=== PATIENT | female | born 1960 | race Caucasian/White ===

== ENCOUNTER 2016-08-03 10:15 | Inpatient (IN) | payer MEDICARE, OTHER ==
[2016-08-03] MEDS: SODIUM CHLORIDE 0.9% 1,000 ML IV SCH (18:24)
[2016-08-03] MEDS ORDERED: BACLOFEN 10 MG TAB PO PRN (18:27)
[2016-08-03] MEDS ORDERED: POLYETHYLENE GLYCOL 3350 17 GM POWD.PACK PO PRN (18:27)
[2016-08-03] MEDS: methylPREDNISolone SOD SUCCI 125 MG/2 ML VIAL IV SCH ×2 (18:41→23:41)
[2016-08-03] MEDS: LEVOFLOXACIN 750MG-D5W PMX 750 MG in DEXTROSE/WATER 1 150ML.BAG IVPB SCH (18:41)
--- NOTE | 2016-08-03 19:12 | XR ---
EXAMINATION TYPE: XR chest 2V DATE OF EXAM: 08/03/2016 6:58 PM COMPARISON: 09/09/2012 HISTORY: Cough and congestion TECHNIQUE: Frontal and lateral views of the chest are obtained. FINDINGS: Heart and mediastinum are normal. Lungs are clear of consolidation. There are no hilar mas ses. There is no evidence of pleural effusion. Bony thorax is intact. IMPRESSION: No active cardiopulmonary disease. No change.
[2016-08-03] MEDS: IBUPROFEN 800 MG TAB PO PRN (19:42)
[2016-08-03 20:32] LABS: Glucose,Whole Blood 111 mg/dL (75-99)
[2016-08-03] MEDS: IPRATROPIUM-ALBUTEROL 3 ML NEB INHALATION SCH (21:08)
[2016-08-03] MEDS: PREGABALIN 100 MG CAP PO SCH (21:56)
[2016-08-03] MEDS: ATORVASTATIN 20 MG TAB PO SCH (21:56)
[2016-08-03] MEDS: MIRTAZAPINE 15 MG TAB PO SCH (21:56)
[2016-08-03] MEDS: ALPRAZolam 0.5 MG TAB PO SCH (21:58)
[2016-08-03] MEDS: INSULIN LISPRO (humaLOG) 300 UNIT/3 ML VIAL SQ SCH (21:58)
[2016-08-03] MEDS: HYDROcodone/APAP 10-325MG 1 EACH TAB PO PRN (22:49)
[2016-08-04] MEDS: HYDROcodone/APAP 10-325MG 1 EACH TAB PO PRN ×3 (04:32→17:01)
[2016-08-04 07:58] LABS: Glucose,Whole Blood 155 mg/dL (75-99)
[2016-08-04] MEDS: FLUoxetine HCL 20 MG CAP PO SCH (08:22)
[2016-08-04] MEDS: SODIUM CHLORIDE 0.9% 1,000 ML IV SCH ×2 (08:22→22:47)
[2016-08-04] MEDS: LIDOCAINE 5% PATCH TOPICAL SCH (08:23)
[2016-08-04] MEDS: PREGABALIN 100 MG CAP PO SCH ×2 (08:23→22:49)
[2016-08-04] MEDS: buPROPion XL 300 MG TAB.ER.24H PO SCH (08:23)
[2016-08-04] MEDS: methylPREDNISolone SOD SUCCI 125 MG/2 ML VIAL IV SCH ×3 (08:24→23:18)
[2016-08-04] MEDS: INSULIN LISPRO (humaLOG) 300 UNIT/3 ML VIAL SQ SCH ×4 (08:25→22:49)
[2016-08-04] MEDS: ALPRAZolam 0.5 MG TAB PO SCH ×3 (08:34→22:49)
[2016-08-04] MEDS: IBUPROFEN 800 MG TAB PO PRN ×2 (08:34→23:18)
[2016-08-04] MEDS: IPRATROPIUM-ALBUTEROL 3 ML NEB INHALATION SCH ×4 (08:52→21:06)
[2016-08-04 11:27] LABS: Glucose,Whole Blood 215 mg/dL (75-99)
[2016-08-04] MEDS ORDERED: IPRATROPIUM-ALBUTEROL 3 ML NEB INHALATION PRN (11:59)
--- NOTE | 2016-08-04 12:00 | P.CNPUL ---
History of Present Illness Consult date: 08/04/16 Reason for consult: dyspnea, cough Chief complaint: Cough and shortness of breath History of present illness: Patient seen and examined covering for Dr. Selby. This is a 56-year-old female who was apparently a direct admit from Dr. Ly 's office. The patient states she has been sick since June and never went to the doctor to get treated. She states it has been worsening over the past several weeks. She has a wet cough which she is just now able to produce yellow green sputum. She states she had to be propped up to sleep at night. She did have fevers and chills at home. She is also complaining of muscle pain from chronic coughing. She states she was hospitalized in 2010 with pneumonia and sepsis she did use inhalers at that time. She stopped her inhalers because she was feeling better. She also has a nebulizer at home which she states she wasn't using. She does smoke half a pack per day for over 20 years. She states since he has been sick she's cut down on her smoking. She states she has never been diagnosed with asthma or COPD. Past Medical History Past Medical History: Cancer, GERD/Reflux, Hyperlipidemia, Musculoskeletal Disorder, Osteoarthritis (OA) Additional Past Medical History / Comment(s): HIATAL HERNIA, hx. PHLEBITIS RIGHT LEG,appetite down since jun 2016, has RSD ( REFLEX SYMPATHETIC DYSTROPHY), 4 inches above rt knee down to toes & right hand to elbow, celic disease was previously charted but when asked if any bowel conditions stated no, herniated discs neck & back, arthritis in hands, had hx of gestational diabetes, pancareatitis, uterine ca, CONSTIPATION STATED SHE CAN GO 2 WEEKS OR MORE WITHOUT HAVING A BM. THINKS SHE MAY HAVE HAD ONE A WEEK AGO. History of Any Multi-Drug Resistant Organisms: None Reported Past Surgical History: Section, Cholecystectomy, Hysterectomy, Orthopedic Surgery, Tubal Ligation Additional Past Surgical History / Comment(s): RIGHT OVARY REMOVED, HAS HAD 3 C- SECTIONS, SCOPE RT KNEE, lt wrist ganglion cyst, partial hysterectomy then 2 months later 2nd sx took it all., lumbar epidural steroid injections Past Anesthesia/Blood Transfusion Reactions: No Reported Reaction Past Psychological History: Anxiety, Depression Additional Psychological History / Comment(s): pt stated i feel well maintained by medications i'm currently on. pt lives alone (1 pet cat)in apt-has no steps. uses a cane /walker.no outside services. no driving-daughters help out. has cane/walker/nebulizer. Smoking Status: Current every day smoker Past Alcohol Use History: None Reported Additional Past Alcohol Use History / Comment(s): smoking on & off since 1986 smokes 1/2 ppd Past Drug Use History: None Reported - Past Family History Father Family Medical History: Cancer, Congestive Heart Failure (CHF), Rheumatoid Arthritis (RA) Additional Family Medical History / Comment(s): gout Mother Family Medical History: Cancer Additional Family Medical History / Comment(s): lung cancer Brother(s) Family Medical History: Myocardial Infarction ([place]) Medications and Allergies Home Medications Medication Instructions Recorded Confirmed Type ALPRAZolam [Xanax] 1 mg PO TID 03/05/14 08/03/16 History Baclofen [Lioresal] 20 mg PO HS PRN 03/05/14 08/03/16 History HYDROcodone/APAP 10-325MG [[place] 1 tab PO Q6H PRN 03/05/14 08/03/16 History 10] Pregabalin [Lyrica] 300 mg PO BID 03/05/14 08/03/16 History Simvastatin [Zocor] 40 mg PO HS 03/05/14 08/03/16 History buPROPion XL [Wellbutrin XL] 300 mg PO DAILY 03/05/14 08/03/16 History fentaNYL 25MCG/HR PATCH [Duragesic 1 patch TRANSDERM Q72H 03/05/14 08/03/16 History 25Mcg/Hr Patch] Ibuprofen [Motrin] 800 mg PO Q6H PRN 03/08/14 08/03/16 History Mirtazapine [Remeron] 7.5 mg PO HS 06/11/14 08/03/16 History Polyethylene Glycol 3350 [Miralax] 17 gm PO DAILY PRN 09/10/14 08/03/16 History FLUoxetine HCL 60 mg PO DAILY 08/03/16 08/03/16 History Lidocaine [Lidoderm 5% Patch] 1 patch TRANSDERM DAILY 08/03/16 08/03/16 History Allergies Allergy/AdvReac Type Severity Reaction Status Date / Time doxycycline calcium Allergy Rash/Hives Verified 02/21/15 16:03 [From Vibramycin] doxycycline hyclate Allergy Rash/Hives Verified 02/21/15 16:03 [From Vibramycin] doxycycline monohydrate Allergy Rash/Hives Verified 02/21/15 16:03 [From Vibramycin] tetracycline [Tetracycline] Allergy Rash/Hives Verified 02/21/15 16:03 gluten AdvReac Unknown Verified 02/21/15 16:03 Physical Exam Osteopathic Statement: *. No significant issues noted on an osteopathic structural exam other than those noted in the History and Physical/Consult. Vitals: Vital Signs Temp Pulse Pulse Resp BP Pulse Ox 08/04/16 08:00 74 18 08/04/16 07:00 97.6 F 74 18 98/53 95 08/03/16 21:20 88 08/03/16 21:09 84 08/03/16 20:50 22 08/03/16 20:48 98.8 F 22 114/54 98 Intake and Output 08/03/16 08/04/16 08/04/16 22:59 06:59 14:59 Intake Total 325 850 Balance 325 850 Intake: Intake, IV Titration 225 600 Amount Sodium Chloride 0.9% 1, 225 600 000 ml @ 75 mls/hr IV . [id number] [facility] Rx#:[id number] Oral 100 250 Other: Voiding Method Toilet Toilet # Voids 1 1 Weight 52 kg Gen.: Patient is alert and oriented 3, no acute distress, thin Cardiovascular: Regular rate and rhythm, S1/S2 Lungs: Coarse breath sounds bilaterally with expiratory wheezing Abdomen: Soft nontender nondistended positive bowel sounds Extremities: No edema Results - Laboratory Findings Abnormal lab findings: Abnormal Labs 08/03/16 08/04/16 08/04/16 20:30 07:56 11:26 POC Glucose (mg/dL) 111 H 155 H 215 H - Diagnostic Findings Chest x-ray: report reviewed, image reviewed Assessment and Plan Plan: Acute exacerbation of COPD Tracheobronchitis Bronchospasm Active tobacco abuse Chronic pain Anxiety and depression Dyslipidemia GERD O2 to maintain saturation greater than equal to 88% Chest x-ray reviewed Antibiotics: Levaquin Solu-Medrol Singulair Bronchodilators and Pulmicort Smoking cessation is highly recommended GI and DVT prophylaxis Incentive spirometry and pulmonary hygiene IV fluid hydration
[2016-08-04 13:11] VITALS: BMI 19.6
[2016-08-04 15:30] LABS: Amorphous Sediment,Urine Rare /hpf; Appearance,Urine Clear (Clear); Bilirubin,Urine Negative (Negative); Glucose,Urine (UA) Negative (Negative); Ketones,Urine Negative (Negative); Leukocyte Esterase,Urine Small (Negative); Mucus,Urine Rare /hpf; Nitrite,Urine Negative (Negative); Particle Count 1487; Protein,Urine Trace (Negative); RBC,Urine 1 /hpf (0-5); Specific Gravity,Urine 1.024 (1.001-1.035); Squamous Epithelial Cell,Urine 2 /hpf (0-4); UA Billing (MACRO vs. MICRO) MICRO; Urobilinogen,Urine <2.0 mg/dL (<2.0); WBC,Urine 2 /hpf (0-5)
[2016-08-04] MEDS: LEVOFLOXACIN 750MG-D5W PMX 750 MG in DEXTROSE/WATER 1 150ML.BAG IVPB SCH (17:27)
[2016-08-04 17:30] LABS: Glucose,Whole Blood 247 mg/dL (75-99)
[2016-08-04] MEDS: BUDESONIDE 0.5 MG/2 ML NEBU INHALATION SCH (21:06)
[2016-08-04 22:05] LABS: Glucose,Whole Blood 229 mg/dL (75-99)
[2016-08-04] MEDS: MIRTAZAPINE 15 MG TAB PO SCH (22:48)
[2016-08-04] MEDS: ATORVASTATIN 20 MG TAB PO SCH (22:48)
[2016-08-04] MEDS: MONTELUKAST 10 MG TAB PO SCH (22:49)
[2016-08-05] MEDS: HYDROcodone/APAP 10-325MG 1 EACH TAB PO PRN ×3 (04:18→17:43)
[2016-08-05] MEDS: LIDOCAINE 5% PATCH TOPICAL SCH (07:33)
[2016-08-05] MEDS: ALPRAZolam 0.5 MG TAB PO SCH ×3 (07:33→23:01)
[2016-08-05] MEDS: PREGABALIN 100 MG CAP PO SCH ×2 (07:34→20:37)
[2016-08-05] MEDS: methylPREDNISolone SOD SUCCI 125 MG/2 ML VIAL IV SCH ×2 (07:34→17:36)
[2016-08-05] MEDS: FLUoxetine HCL 20 MG CAP PO SCH (07:35)
[2016-08-05 07:42] LABS: Glucose,Whole Blood 218 mg/dL (75-99)
[2016-08-05] MEDS: INSULIN LISPRO (humaLOG) 300 UNIT/3 ML VIAL SQ SCH ×4 (07:47→20:38)
[2016-08-05 08:21] LABS: ALT 29 U/L (9-52); AST 22 U/L (14-36); Alkaline Phosphatase 60 U/L (38-126); Anion Gap 9 mmol/L; Blood Urea Nitrogen 25 mg/dL (7-17); Calcium 8.8 mg/dL (8.4-10.2); Carbon Dioxide 23 mmol/L (22-30); Chloride 109 mmol/L (98-107); Glucose 222 mg/dL (74-99); Non-African American GFR(MDRD) >60 (>60 ml/min/1.73 sqM); Potassium 4.4 mmol/L (3.5-5.1); Sodium 141 mmol/L (137-145); Total Bilirubin 0.2 mg/dL (0.2-1.3); Total Protein 6.4 g/dL (6.3-8.2)
[2016-08-05 08:25] LABS: Basophils % (A) 0 %; CHCM 31.8; Eosinophils % (A) 0 %; HCT 36.6 % (34.0-46.0); HDW 2.55; HGB 12.1 gm/dL (11.4-16.0); Luc # (Auto) 0.08; Luc % (Auto) 1; Lymphocytes # (A) 0.5 k/uL (1.0-4.8); Lymphocytes % (A) 3 %; MCH 30.2 pg (25.0-35.0); MCV 91.5 fL (80.0-100.0); Mean Platelet Volume 6.5; Monocytes # (A) 0.3 k/uL (0-1.0); Monocytes % (A) 2 %; Neutrophils # (A) 13.1 k/uL (1.3-7.7); Neutrophils % (A) 94 %; RDW 13.9 % (11.5-15.5); WBC 13.9 k/uL (3.8-10.6); WBC (Perox) 14.79
[2016-08-05] MEDS: buPROPion XL 300 MG TAB.ER.24H PO SCH (09:13)
[2016-08-05] MEDS: IPRATROPIUM-ALBUTEROL 3 ML NEB INHALATION SCH ×4 (09:33→20:10)
[2016-08-05] MEDS: BUDESONIDE 0.5 MG/2 ML NEBU INHALATION SCH ×2 (09:33→20:10)
[2016-08-05] MEDS: SODIUM CHLORIDE 0.9% 1,000 ML IV SCH (11:07)
[2016-08-05 11:18] LABS: Glucose,Whole Blood 220 mg/dL (75-99)
[2016-08-05] MEDS: IBUPROFEN 800 MG TAB PO PRN (11:55)
--- NOTE | 2016-08-05 12:00 | HP ---
DATE OF ADMISSION: 08/03/2016 CHIEF COMPLAINT: This is a 56-year-old white female with increased respiratory distress, shortness of breath, failing outpatient treatment with aggressive albuterol and Atrovent and steroids. She has been coughing with green-yellow phlegm. Did have some fever and chills, muscle pain and some chronic coughing. History of pneumonia in the past. She smokes 1/2 pack per day for 20 years. PAST MEDICAL HISTORY: GERD, COPD, osteoarthritis, possible asthma, dyslipidemia, RSD, fibromyalgia, multiple herniated disks in the neck and lower back, osteoarthritis, gestational diabetes, pancreatitis, history constipation, possible celiac disease. Surgeries of , cholecystectomy, hysterectomy, orthopedic surgery, tubal ligation, right ovary ( ) resection, 3 C-sections, scope of the right knee, partial hysterectomy, lumbar epidural steroid injections. She lives alone. She uses a walker and a cane. She has a pet cat. She has no steps. Family helps out. Current every day smoker. No alcohol. No illicit drugs. FAMILY HISTORY: Father had cancer, congestive heart failure, rheumatoid arthritis. Mother had cancer, lung cancer. Brother with myocardial infarction. Medications at home Xanax, Lioresal, hydrocodone, Lyrica, Zocor, Wellbutrin, Cytomel, Motrin, Remeron, MiraLAX, fluoxetine, lidocaine patch. ALLERGIES: DOXYCYCLINE, TETRACYCLINE. Pulse 74, respirations 16 to 18, temp 97.6, blood pressure 90s to 100s over 50s. CARDIOVASCULAR: Regular rate and rhythm. S1, S2. No murmurs, rubs, gallops. ABDOMEN: Soft, nontender, normal bowel sounds. EXTREMITIES: No cyanosis, clubbing or edema. GENERAL: Alert, and oriented x3. LUNGS: Scattered wheeze x4. Decreased breath sounds x4, scattered rhonchi. No rales. GI: Soft, nontender. VASCULAR: Normal dorsalis pedis, posterior tibial and radial pulse. ASSESSMENT: 1. Acute exacerbation of chronic obstructive pulmonary disease. 2. Tracheobronchitis, bronchospasm. 3. Nicotine addiction. 4. Anxiety, depression. 5. Reflex sympathetic dystrophy. 6. Fibromyalgia. 7. Dyslipidemia. 8. Radiculopathy. 9. Gastroesophageal reflux disease. Continue with Levaquin, steroids, IV, updraft treatments. Await pulmonary consult. Home medicines will be continued. Singulair, DuoNeb and Pulmicort updrafts. See further orders. Fluid rehydration.
[2016-08-05 12:22] LABS: Hemoglobin A1C 5.6 % (4.2-6.1)
--- NOTE | 2016-08-05 12:46 | PN ---
Antoinette Arguello is a 56-year-old female, seen, evaluated, and examined on the fifth floor. Patient is extremely short of breath on minimal activity and exertion. She does have intermittent wheezing, denies any chest pain though but gets short of breath on minimal activity and exertion. Her hemodynamic status is marginal, but stable. Blood pressure is 110/50, respiratory rate is 16, pulse 83, temperature 97, sating 98% on 2 L. HEENT examination is otherwise unremarkable. NECK: Supple. LUNGS: Bilateral coarse breath sound, respiratory extreme wheezing and rhonchi are present. HEART: Regular rate and rhythm. Abdomen is soft. NEUROLOGICAL EXAMINATION: Otherwise, awake and alert. Labs reviewed. Medications reviewed as well. Her TSH is 0.060. The rest of the chemistry is normal except glucose is 218. CBC revealed white cell count of 13,900. Current medications reviewed and include DuoNeb unit dose updraft 4 times a day, Pulmicort 0.5 b.i.d., Wellbutrin, Duragesic patch, Prozac, Levaquin, Solu-Medrol, mirtazapine, Singulair and Maalox and Lyrica, IV fluid normal creatinine 75 mL and hour. The last chest x-ray performed 08/03/2016 has been reviewed, no active pulmonary process is seen. IMPRESSION: 1. Acute chronic obstructive pulmonary disease exacerbation. 2. Tracheobronchitis. 3. Severe and chronic pain syndrome. 4. Purulent tracheobronchitis. 5. Severely suppressed TSH. Would recommend to check FT4 level to rule hypothyroidism. Continue other supportive care. Continue steroids, antibiotics and breathing treatments. Continue sliding scale insulin, borderline hyperglycemia likely related to steroids. Will follow.
[2016-08-05] MEDS: PROM-PHEN-COD 6.25-5-10MG/5ML 5 ML CUP PO PRN (13:35)
--- NOTE | 2016-08-05 14:07 | PN ---
Antoinette is a 56-year-old white female with tracheobronchitis, acute respiratory failure, severe wheezing, failing outpatient treatment. She still has large amounts of wheezing in all 4 lung ma. CARDIOVASCULAR: S1, S2. LUNGS: Scattered wheeze and rhonchi x4. She has severe congestive cough. ENDOCRINE: She is thin, cachectic. ASSESSMENT: 1. Asthma exacerbation versus chronic obstructive pulmonary disease exacerbation. 2. Tracheobronchitis. 3. Acute respiratory failure secondary to above. Continue with Pulmicort, albuterol and Atrovent updrafts. Continue with IV Levaquin, IV Solu-Medrol and was started on nutrition supplements for moderate protein calorie malnutrition. Will give her some cough medicine today as she has severe cough.
[2016-08-05 17:17] LABS: Glucose,Whole Blood 216 mg/dL (75-99)
[2016-08-05] MEDS: LEVOFLOXACIN 750 MG TAB PO SCH (18:52)
[2016-08-05 20:31] LABS: Glucose,Whole Blood 186 mg/dL (75-99)
[2016-08-05] MEDS: MIRTAZAPINE 15 MG TAB PO SCH (20:36)
[2016-08-05] MEDS: ATORVASTATIN 20 MG TAB PO SCH (20:36)
[2016-08-05] MEDS: MONTELUKAST 10 MG TAB PO SCH (20:37)
[2016-08-06] MEDS: SODIUM CHLORIDE 0.9% 1,000 ML IV SCH ×4 (00:06→17:23)
[2016-08-06] MEDS: methylPREDNISolone SOD SUCCI 125 MG/2 ML VIAL IV SCH ×2 (00:06→08:28)
[2016-08-06] MEDS: IBUPROFEN 800 MG TAB PO PRN ×3 (04:45→17:22)
[2016-08-06] MEDS: PROM-PHEN-COD 6.25-5-10MG/5ML 5 ML CUP PO PRN ×3 (04:46→21:01)
[2016-08-06 07:20] LABS: Glucose,Whole Blood 191 mg/dL (75-99)
[2016-08-06] MEDS: BUDESONIDE 0.5 MG/2 ML NEBU INHALATION SCH ×2 (07:20→19:25)
[2016-08-06] MEDS: IPRATROPIUM-ALBUTEROL 3 ML NEB INHALATION SCH ×4 (07:21→19:25)
[2016-08-06] MEDS: ALPRAZolam 0.5 MG TAB PO SCH ×3 (08:27→22:08)
[2016-08-06] MEDS: FLUoxetine HCL 20 MG CAP PO SCH (08:28)
[2016-08-06] MEDS: buPROPion XL 300 MG TAB.ER.24H PO SCH (08:28)
[2016-08-06] MEDS: PREGABALIN 100 MG CAP PO SCH ×2 (08:28→21:01)
[2016-08-06] MEDS: INSULIN LISPRO (humaLOG) 300 UNIT/3 ML VIAL SQ SCH ×4 (08:29→21:01)
[2016-08-06] MEDS: LIDOCAINE 5% PATCH TOPICAL SCH (08:30)
[2016-08-06] MEDS: HYDROcodone/APAP 10-325MG 1 EACH TAB PO PRN ×2 (08:39→21:00)
--- NOTE | 2016-08-06 11:50 | P.PN ---
Subjective This patient is a 56-year-old female who is being evaluated and examined today on the fifth floor. The patient continues to be short of breath on minimal activity and exertion. She does continue to have intermittent wheezing denies any chest pain at this time upon examination the patient gets short of breath with extensive conversation. Patient is complaining of thick secretions and she is unable to cough up the secretions. Objective - Vital Signs Vital signs: Vital Signs Temp 98.0 F 08/06/16 07:00 Pulse 90 08/06/16 11:19 Resp 16 08/06/16 07:00 BP 131/73 08/06/16 07:00 Pulse Ox 99 08/06/16 07:00 Intake & Output 08/05/16 08/06/16 08/06/16 18:59 06:59 18:59 Intake Total 1250 975 240 Balance 1250 975 240 Weight 52 kg Intake: Intake, IV Titration 650 825 Amount Sodium Chloride 0.9% 1, 650 825 000 ml @ 75 mls/hr IV . [id number] [facility] Rx#:[id number] Oral 600 150 240 Other: Voiding Method Toilet Toilet Toilet # Voids 1 1 - Exam GENERAL EXAM: Alert, active, comfortable in no apparent distress. HEAD: Normocephalic. EYES: Normal reaction of pupils, equal size. NOSE: Clear with pink turbinates. THROAT: No erythema or exudates. NECK: No masses, no JVD. CHEST: No chest wall deformity. LUNGS: Lung sounds noted to be coarse bilaterally, also noted is inspiratory and expiratory wheezing with rhonchi. CVS: S1 and S2 normal with no audible mumurs, regular rhythm. ABDOMEN: No hepatosplenomegaly, normal bowel sounds, no guarding or rigidity. EXTREMITIES: No edema noted, pedal pulses palpable. SKIN: No rashes CENTRAL NERVOUS SYSTEM: No focal deficits, tone is normal in all 4 extremities. - Labs CBC & Chem 7: 08/05/16 07:15 08/05/16 07:15 Labs: Abnormal Lab Results - Last 24 Hours (Table) 08/05/16 08/05/16 08/06/16 Range/Units 17:14 20:22 07:05 POC Glucose (mg/dL) 216 H 186 H 191 H (75-99) mg/dL Assessment and Plan Plan: Assessment Acute exacerbation of chronic obstructive pulmonary disease Tracheobronchitis Severe chronic pain syndrome Dyslipidemia Suppressed TSH Nicotine dependency Anxiety and depression Reflex sympathetic dystrophy GERD Medications have been reviewed and will be continued. We will continue supportive care. We will add Mucinex twice a day to help with thick secretions. Continue nebulizer treatments as ordered. We will continue to monitor labs and results and adjust treatment as necessary. I performed an examination of the patient and discussed their management with the nurse practitioner. I have reviewed the nurse practitioner's note and agree with the documented findings and plan of care.
[2016-08-06 11:56] LABS: Glucose,Whole Blood 178 mg/dL (75-99)
[2016-08-06] MEDS: guaiFENesin 600 MG TABLET.ER PO SCH ×2 (13:27→21:01)
--- NOTE | 2016-08-06 14:35 | P.PN ---
Subjective 56-year-old female being seen sitting up in bed talkative states breathing feels slightly improved but continues to report feeling short of breath with exertion. Patient states has a cough but not able to cough up secretions. Patient continues to incentive spirometer with coaching can achieve that thousand. Pulse ox sat on 2 L are 99%. Patients being followed by pulmonology service being treated for an acute exacerbation of COPD with tracheobronchitis patient has a significant nicotine dependency greater than a 20 year history Objective - Vital Signs Vital signs: Vital Signs Temp 98.0 F 08/06/16 07:00 Pulse 90 08/06/16 11:19 Resp 16 08/06/16 07:00 BP 131/73 08/06/16 07:00 Pulse Ox 99 08/06/16 07:00 Intake & Output 08/05/16 08/06/16 08/06/16 18:59 06:59 18:59 Intake Total 1250 975 240 Balance 1250 975 240 Weight 52 kg Intake: Intake, IV Titration 650 825 Amount Sodium Chloride 0.9% 1, 650 825 000 ml @ 75 mls/hr IV . [id number] [facility] Rx#:[id number] Oral 600 150 240 Other: Voiding Method Toilet Toilet Toilet # Voids 1 1 - Exam Physical exam 56-year-old female thin slightly cachectic in appearance sitting up in bed talkative pleasant cooperative oriented 3 Lungs diminished at the bases not able to appreciate any wheezing no noted no use of accessory muscles to breathe Heart S1-S2 audible and regular Abdomen flat nontender no reports of nausea vomiting Extremities no edema noted - Labs CBC & Chem 7: 08/05/16 07:15 08/05/16 07:15 Labs: Abnormal Lab Results - Last 24 Hours (Table) 08/05/16 08/05/16 08/06/16 Range/Units 17:14 20:22 07:05 POC Glucose (mg/dL) 216 H 186 H 191 H (75-99) mg/dL 08/06/16 Range/Units 11:24 POC Glucose (mg/dL) 178 H (75-99) mg/dL Assessment and Plan Plan: Impression Present on admission shortness of breath suspect due to an acute exacerbation of COPD with tracheobronchitis Severe chronic pain opiate dependency Ongoing active nicotine dependency greater than a 40 year history half a pack a day Anxiety depressive disorder nonspecified Esophageal reflux disease Hyperlipidemia Mild protein calorie malnutrition underweight BMI 19 suspect due to chronic illness poor caloric intake pulmonary cachectic Plan Continue recommendations by pulmonary service Decrease the IV fluid to 50 an hour Home meds as appropriate DVT and GI prophylaxis Taper steroids and monitor the response Further recommendations pending Titrate the O2 down keep sats greater than 88% Prior to discharge home O2 eval The above dictated assessment and findings were discussed with dr shah Impression and the plan of care have been dictated as directed. Graciela Fitzpatrick nurse practitioner acting as a scribe for dr shah
[2016-08-06 17:01] LABS: Glucose,Whole Blood 274 mg/dL (75-99)
[2016-08-06] MEDS: LEVOFLOXACIN 750 MG TAB PO SCH (17:11)
[2016-08-06] MEDS: methylPREDNISolone SOD SUCCI 40 MG/ML 1 ML VIAL IV SCH ×2 (17:11→23:27)
[2016-08-06 20:46] LABS: Glucose,Whole Blood 247 mg/dL (75-99)
[2016-08-06] MEDS: MIRTAZAPINE 15 MG TAB PO SCH (21:01)
[2016-08-06] MEDS: ATORVASTATIN 20 MG TAB PO SCH (21:01)
[2016-08-06] MEDS: MONTELUKAST 10 MG TAB PO SCH (21:01)
[2016-08-07] MEDS: HYDROcodone/APAP 10-325MG 1 EACH TAB PO PRN ×2 (03:51→11:13)
[2016-08-07 07:00] LABS: Glucose,Whole Blood 195 mg/dL (75-99)
[2016-08-07] MEDS: IPRATROPIUM-ALBUTEROL 3 ML NEB INHALATION SCH ×3 (07:24→15:55)
[2016-08-07] MEDS: BUDESONIDE 0.5 MG/2 ML NEBU INHALATION SCH (07:24)
[2016-08-07 07:38] VITALS: BP 113/62; RESP 16; TEMP 97.7
[2016-08-07] MEDS: SODIUM CHLORIDE 0.9% 1,000 ML IV SCH (07:47)
[2016-08-07] MEDS: LIDOCAINE 5% PATCH TOPICAL SCH (07:48)
[2016-08-07] MEDS: methylPREDNISolone SOD SUCCI 40 MG/ML 1 ML VIAL IV SCH (07:48)
[2016-08-07] MEDS: ALPRAZolam 0.5 MG TAB PO SCH ×2 (07:49→15:14)
[2016-08-07] MEDS: IBUPROFEN 800 MG TAB PO PRN (07:49)
[2016-08-07] MEDS: buPROPion XL 300 MG TAB.ER.24H PO SCH (07:50)
[2016-08-07] MEDS: guaiFENesin 600 MG TABLET.ER PO SCH (07:50)
[2016-08-07] MEDS: FLUoxetine HCL 20 MG CAP PO SCH (07:50)
[2016-08-07] MEDS: PREGABALIN 100 MG CAP PO SCH (07:50)
[2016-08-07] MEDS: INSULIN LISPRO (humaLOG) 300 UNIT/3 ML VIAL SQ SCH ×2 (07:51→13:26)
[2016-08-07] MEDS ORDERED: predniSONE 20 MG TAB PO SCH (09:00)
[2016-08-07] MEDS: NYSTATIN 100,000 UNIT/ML SUSP 500,000 UNIT/5 ML CUP PO SCH ×2 (09:06→13:26)
--- NOTE | 2016-08-07 10:24 | P.PN ---
Subjective This patient is a 56-year-old female who is being evaluated and examined today on the fifth floor. The patient continues to be short of breath with activity and exertion. She does continue to have intermittent wheezing, denies any chest pain at this time upon examination the patient is resting up in bed on room air. Patient is complaining of thick secretions and she is unable to cough up the secretions, Mucinex was added yesterday and she feels that it is helping.. Objective - Vital Signs Vital signs: Vital Signs Temp 97.7 F 08/07/16 07:00 Pulse 86 08/07/16 07:42 Resp 16 08/07/16 07:00 BP 113/62 08/07/16 07:00 Pulse Ox 95 08/07/16 07:24 Intake & Output 08/06/16 08/07/16 08/07/16 18:59 06:59 18:59 Intake Total 840 400 Balance 840 400 Intake: Intake, IV Titration 600 400 Amount Sodium Chloride 0.9% 1, 600 400 000 ml @ 50 mls/hr IV . Q20H [facility] Rx#:[id number] Oral 240 Other: Voiding Method Toilet Toilet # Voids 3 1 - Exam GENERAL EXAM: Alert, active, comfortable in no apparent distress. HEAD: Normocephalic. EYES: Normal reaction of pupils, equal size. NOSE: Clear with pink turbinates. THROAT: No erythema or exudates. NECK: No masses, no JVD. CHEST: No chest wall deformity. LUNGS: Lung sounds noted to be coarse bilaterally, also noted is expiratory wheezing with rhonchi, however improved since yesterday CVS: S1 and S2 normal with no audible mumurs, regular rhythm. ABDOMEN: No hepatosplenomegaly, normal bowel sounds, no guarding or rigidity. EXTREMITIES: No edema noted, pedal pulses palpable. SKIN: No rashes CENTRAL NERVOUS SYSTEM: No focal deficits, tone is normal in all 4 extremities. - Labs CBC & Chem 7: 08/05/16 07:15 08/05/16 07:15 Labs: Abnormal Lab Results - Last 24 Hours (Table) 08/06/16 08/06/16 08/06/16 Range/Units 11:24 17:00 20:19 POC Glucose (mg/dL) 178 H 274 H 247 H (75-99) mg/dL 08/07/16 Range/Units 06:56 POC Glucose (mg/dL) 195 H (75-99) mg/dL Assessment and Plan Plan: Assessment Acute exacerbation of chronic obstructive pulmonary disease Tracheobronchitis Severe chronic pain syndrome Dyslipidemia Suppressed TSH Nicotine dependency Anxiety and depression Reflex sympathetic dystrophy GERD Patient could be discharged from a pulmonary standpoint in the near future. Medications have been reviewed and will be continued. We will continue supportive care. Continue Mucinex twice a day to help with thick secretions. Continue nebulizer treatments as ordered. We will continue to monitor labs and results and adjust treatment as necessary. I performed an examination of the patient and discussed their management with the nurse practitioner. I have reviewed the nurse practitioner's note and agree with the documented findings and plan of care.
[2016-08-07 11:11] VITALS: PULSE 80
[2016-08-07 11:39] LABS: Glucose,Whole Blood 213 mg/dL (75-99)
--- NOTE | 2016-08-07 12:15 | P.DS ---
Providers Date of admission: 08/03/16 16:53 Expected date of discharge: 08/07/16 Attending physician: Maurilio Ly Consults: 08/03/16 17:36 Consult Physician Routine Consulting Provider: Onel Selby Consult Reason/Comments: COPD Do you want consulting provider notified?: Already Contacted [facility] Course: This is a 56-year-old female who was apparently a direct admit from Dr. yL 's office. The patient states she has been sick since June and never went to the doctor to get treated. She states it has been worsening over the past several weeks. She has a wet cough which she is just now able to produce yellow green sputum. She states she had to be propped up to sleep at night. She did have fevers and chills at home. She is also complaining of muscle pain from chronic coughing. She states she was hospitalized in 2010 with pneumonia and sepsis she did use inhalers at that time. She stopped her inhalers because she was feeling better. She also has a nebulizer at home which she states she wasn't using. She does smoke half a pack per day for over 20 years. She states since he has been sick she's cut down on her smoking. She states she has never been diagnosed with asthma or COPD. patient was followed closely by pulmonology service was treated for an acute exacerbation of COPD with acute bronchitis. Patient does have severe chronic pain syndrome with narcotic opiate dependency. Additionally patient has been trying to cut down on her smoking has a significant nicotine dependency. Pulmonology recommended adding Singulair to patient's medication regime which was initiated. Additionally patient was started on IV Solu-Medrol. Over the course of hospitalization there was a noted improvement in patient's pulmonary status patient was felt to be stable to be discharged on the 28 Impression discharge diagnosis Anxiety depression disorder nonspecified present on admission shortness of breath suspect due to an acute exacerbation of COPD with tracheobronchitis suspect bronchospasm Severe chronic pain opiate dependency Ongoing active nicotine dependency greater than a 40 year history half a pack a day Anxiety depressive disorder nonspecified Esophageal reflux disease Hyperlipidemia Mild protein calorie malnutrition underweight BMI 19 suspect due to chronic illness poor caloric intake pulmonary cachectic The above dictated assessment and findings were discussed with Dr. Malachi Dia and the plan of care have been dictated as directed. Graciela Fitzpatrick nurse practitioner acting as a scribe for Dr. Ly Plan - Discharge Summary New Discharge Prescriptions: Ipratropium-Albuterol Nebulize [Duoneb 0.5 mg-3 mg/3 ml Soln] 3 ml INHALATION RT -Q2H PRN #120 ampul.neb PRN Reason: Shortness Of Breath Or Wheezing Levofloxacin [Levaquin] 750 mg PO DAILY@1800 #7 tab Nystatin 100,000 Unit/ml Susp [Mycostatin Oral Susp] 500,000 unit PO QID #200 cup predniSONE 40 mg PO DAILY #8 tab Discharge Medication List ALPRAZolam [Xanax] 1 mg PO TID 03/05/14 [History] Baclofen [Lioresal] 20 mg PO HS PRN 03/05/14 [History] HYDROcodone/APAP 10-325MG [[place]igo 10-325] 1 tab PO Q6H PRN 03/05/14 [History] Pregabalin [Lyrica] 300 mg PO BID 03/05/14 [History] Simvastatin [Zocor] 40 mg PO HS 03/05/14 [History] buPROPion XL [Wellbutrin XL] 300 mg PO DAILY 03/05/14 [History] fentaNYL 25MCG/HR PATCH [Duragesic 25MCG/HR] 1 patch TRANSDERM Q72H 03/05/14 [ History] Ibuprofen [Motrin] 800 mg PO Q6H PRN 03/08/14 [History] Mirtazapine [Remeron] 7.5 mg PO HS 06/11/14 [History] Polyethylene Glycol 3350 [Miralax] 17 gm PO DAILY PRN 09/10/14 [History] FLUoxetine HCL 60 mg PO DAILY 08/03/16 [History] Lidocaine [Lidoderm 5% Patch] 1 patch TRANSDERM DAILY 08/03/16 [History] Ipratropium-Albuterol Nebulize [Duoneb 0.5 mg-3 mg/3 ml Soln] 3 ml INHALATION RT -Q2H PRN #120 ampul.neb 08/07/16 [Rx] Levofloxacin [Levaquin] 750 mg PO DAILY@1800 #7 tab 08/07/16 [Rx] Nystatin 100,000 Unit/ml Susp [Mycostatin Oral Susp] 500,000 unit PO QID #200 cup 08/07/16 [Rx] predniSONE 40 mg PO DAILY #8 tab 08/07/16 [Rx] Follow up Appointment(s)/Referral(s): Maurilio Ly MD [Primary Care Provider] - 08/10/16 9:45 am Onel Selby MD [STAFF PHYSICIAN] - 1 Week (Patient to call and schedule follow up appointment, the office is closed at time of discharge.) Activity/Diet/Wound Care/Special Instructions: [facility]-[phone] Discharge Disposition: HOME WITH HOME HEALTH SERVICES
== END 2016-08-07 15:45 | disposition home health service (06) | DRG 191 ==
LOC: 5MS5E 16:53
PROVIDERS: ADMIT Family Medicine; ATTEND Family Medicine
DX: J44.1 Chronic obstructive pulmonary disease with (acute) exacerbation (principal); R64 Cachexia; E44.0 Moderate protein-calorie malnutrition; F11.20 Opioid dependence, uncomplicated; M50.20 Other cervical disc displacement, unspecified cervical region; G90.521 Complex regional pain syndrome I of right lower limb; Z68.1 Body mass index [BMI] 19.9 or less, adult; R73.9 Hyperglycemia, unspecified; T38.0X5A Adverse effect of glucocorticoids and synthetic analogues, initial encounter; J44.0 Chronic obstructive pulmonary disease with (acute) lower respiratory infection; J20.9 Acute bronchitis, unspecified; K21.9 Gastro-esophageal reflux disease without esophagitis; E78.5 Hyperlipidemia, unspecified; G89.4 Chronic pain syndrome; M51.26 Other intervertebral disc displacement, lumbar region; M54.10 Radiculopathy, site unspecified; R94.6 Abnormal results of thyroid function studies; R06.2 Wheezing; R50.9 Fever, unspecified; M19.041 Primary osteoarthritis, right hand; M19.042 Primary osteoarthritis, left hand; K59.00 Constipation, unspecified; K44.9 Diaphragmatic hernia without obstruction or gangrene; F17.200 Nicotine dependence, unspecified, uncomplicated; F32.9 Major depressive disorder, single episode, unspecified; F41.9 Anxiety disorder, unspecified; M79.7 Fibromyalgia; Z80.1 Family history of malignant neoplasm of trachea, bronchus and lung; Z87.01 Personal history of pneumonia (recurrent); Z82.49 Family history of ischemic heart disease and other diseases of the circulatory system; Z79.899 Other long term (current) drug therapy; Z85.42 Personal history of malignant neoplasm of other parts of uterus; Z86.32 Personal history of gestational diabetes; Z86.72 Personal history of thrombophlebitis; Z71.6 Tobacco abuse counseling; Z87.828 Personal history of other (healed) physical injury and trauma; Z87.19 Personal history of other diseases of the digestive system; Z88.1 Allergy status to other antibiotic agents; Z91.018 Allergy to other foods; Z79.1 Long term (current) use of non-steroidal anti-inflammatories (NSAID); Z71.3 Dietary counseling and surveillance; Z82.61 Family history of arthritis; Z90.49 Acquired absence of other specified parts of digestive tract; Z90.710 Acquired absence of both cervix and uterus; Z98.51 Tubal ligation status; Z90.721 Acquired absence of ovaries, unilateral
CPT/HCPCS: 71020; 80053; 81001; 83036; 83880; 84439; 84443; 85025; 86684; 86710; 94640; 94760

== ENCOUNTER → 2017-06-24 | Outpatient (CLI) | payer MEDICARE, OTHER ==
--- NOTE | 2017-06-24 13:47 | MR ---
EXAMINATION TYPE: MR lumbar spine wo/w con DATE OF EXAM: 06/24/2017 COMPARISON: 09/10/2014 Contrast: 6 mL Gadavist HISTORY: Low back pain, esperanza leg numbness TECHNIQUE: T1 and T2 axial and sagittal, postcontrast T1 sagittal and axial images images of the lum bar spine are submitted. FINDINGS: There is no abnormal signal seen within the visualized spinal cord or paraspinal soft tissu es. At L1-2 there is no disc herniation, canal stenosis, or foraminal encroachment. At L2-3 there is degenerative disc disease, ligamentum flavum hypertrophy, facet arthropathy and circ umferential disc bulging. Mild bilateral foraminal encroachment. No Canal stenosis. At L3-4 there is degenerative disc disease. Diffuse disc bulging noted with hypertrophy ligamentum fl avum and severe arthropathy of the facet joints. Bulging slightly greater laterally to left with bila teral moderate foraminal encroachment. Findings compatible with mild to moderate canal stenosis. At L4-5 there is diffuse disc bulging greater paracentrally and laterally to the right with hypertrop hy of the ligamentum flavum and facet joints. Bilateral foraminal encroachment greater on the right a nd evidence of moderate canal stenosis. At L5-S1 there is marked facet arthropathy. Central disc bulging is stable. There is mild bilateral f oraminal encroachment. No Canal stenosis. No focal herniation. IMPRESSION: 1. Multilevel degenerative disc disease with disc bulging and hypertrophic changes at L3-4 and L4-5 r esulting in bilateral foraminal encroachment and canal stenosis as discussed above. 2. Disc bulging L5-S1 with mild bilateral foraminal encroachment stable.
== END | disposition home or self-care (01) ==
LOC: RADMRIMAIN 12:15
PROVIDERS: ATTEND Family Medicine
DX: M48.061 Spinal stenosis, lumbar region without neurogenic claudication (principal); M51.27 Other intervertebral disc displacement, lumbosacral region; M51.36 Other intervertebral disc degeneration, lumbar region; M53.86 Other specified dorsopathies, lumbar region
CPT/HCPCS: 72158; A9581

== ENCOUNTER → 2017-07-22 | Outpatient (CLI) | payer MEDICARE, OTHER ==
--- NOTE | 2017-07-23 09:53 | MM ---
Reason for exam: screening (asymptomatic). Last mammogram was performed 18 years and 3 months ago. Physical Findings: A clinical breast exam by your physician is recommended on an annual basis and results should be correlated with mammographic findings. MG 3D Screening Mammo W/Cad Bilateral CC and MLO view(s) were taken. Prior study comparison: May 10, 2010, mammogram. May 09, 2009, mammogram. The breast tissue is extremely dense which could obscure a lesion on mammography. Focal asymmetry upper outer right breast 6.1cm from nipple. This finding is changed when compared with previous exams. ASSESSMENT: Incomplete: need additional imaging evaluation, BI-RAD 0 RECOMMENDATION: Special view mammogram of the right breast. If lesion persists on supplemental views, image directed ultrasound is recommended. [facility] will attempt to contact patient to return for supplemental views and ultrasound if indicated.
== END | disposition home or self-care (01) ==
LOC: RADMAMWWP 07:06
PROVIDERS: ATTEND Family Medicine
DX: Z12.31 Encounter for screening mammogram for malignant neoplasm of breast (principal)
CPT/HCPCS: 77063; 77067

== ENCOUNTER → 2017-07-31 | Outpatient (CLI) | payer MEDICARE, OTHER ==
--- NOTE | 2017-07-31 11:35 | MM ---
Reason for exam: additional evaluation requested from abnormal screening. Last mammogram was performed less than 1 month ago. History: Patient is postmenopausal. Took hormonal contraceptives for 2 years beginning at age 19. Took estrogen for 5 years beginning at age 38. Took progesterone beginning at age 38. Physical Findings: Nurse did not find any significant physical abnormalities on exam. MG 3D Work Up W/Cad RT Spot compression CC, spot compression MLO, and ML view(s) were taken of the right breast. Prior study comparison: July 22, 2017, bilateral MG 3d screening mammo w/cad. May 10, 2010, mammogram. The breast tissue is extremely dense which could obscure a lesion on mammography. No suspicious abnormality. The previously seen abnormality does not persist on additional views and appears as fibroglandular tissue. These results were verbally communicated with the patient and result sheet given to the patient on 07/31/17. ASSESSMENT: Benign, BI-RAD 2 RECOMMENDATION: Return to routine screening mammogram schedule for both breasts.
== END | disposition home or self-care (01) ==
LOC: RADMAMWWP 10:02
PROVIDERS: ATTEND Family Medicine
DX: R92.8 Other abnormal and inconclusive findings on diagnostic imaging of breast (principal)
CPT/HCPCS: 77065; G0279

== ENCOUNTER → 2017-12-30 | Outpatient (CLI) | payer MEDICARE, OTHER ==
--- NOTE | 2017-12-30 07:34 | MR ---
EXAMINATION TYPE: MR cervical spine wo con DATE OF EXAM: 12/30/2017 COMPARISON: None HISTORY: Degenerative disc disease TECHNIQUE: Multiplanar, multisequence images of the cervical spine were acquired. C2-C3: Loss of disc space and signal with uncovertebral joint hypertrophy. No foraminal encroachment or canal stenosis. No disc herniation. C3-C4: Mild loss of disc signal and space. There is bilateral uncovertebral joint hypertrophy greater on the left with moderate left-sided foraminal encroachment. Broad-based central disc bulging but no canal stenosis. C4-C5: Degenerative disc disease with focal central disc herniation results in anterior contact of th e spinal cord. There is bilateral uncovertebral joint hypertrophy and facet arthropathy greater on th e left. Neural foramina remain patent. There is AP canal stenosis secondary to disc herniation. C5-C6: Severe degenerative disc disease with posterior spondylosis. Broad-based central disc protrusi on, uncovertebral joint hypertrophy and cervical spondylosis result in moderate canal stenosis and b ilateral severe foraminal encroachment. Disc osteophyte complex contacts the anterior margin the spin al cord. C6-C7: Moderate to severe degenerative disc disease. There is diffuse disc bulging and hypertrophic c hange of the uncovertebral joints and facets. There is significant bilateral foraminal encroachment a nd mild central stenosis. C7-T1: No disc herniation or canal stenosis. No foraminal encroachment. Cervical segments are intact. There is normal alignment. Cervical spinal cord is of normal signal. Craniovertebral junction relationships are within normal limits. Degenerative disc disease involvin g the upper thoracic spine noted. Sphenoidal sinusitis seen. Multilevel facet arthropathy noted. IMPRESSION: 1. Multilevel degenerative disc disease with most marked changes at C5-6 and C6-C7 with disc bulging or protrusion seen in combination with hypertrophic spurring resulting in significant bilateral travis inal encroachment and canal stenosis. 2. Broad-based central disc herniation C4-C5 contacts the anterior margin of the spinal cord with mil d mass effect and compression. Correlate clinically.
== END | disposition home or self-care (01) ==
LOC: RADMRIMAIN 06:06
PROVIDERS: ATTEND Neurological Surgery
DX: M48.02 Spinal stenosis, cervical region (principal); M50.121 Cervical disc disorder at C4-C5 level with radiculopathy
CPT/HCPCS: 72141

== ENCOUNTER → 2018-02-04 | Outpatient (CLI) | payer MEDICARE, OTHER ==
[2018-02-04 17:01] LABS: Basophils % (A) 0 %; Eosinophils # (A) 0.2 k/uL (0-0.7); Eosinophils % (A) 1 %; HCT 46.4 % (34.0-46.0); HGB 15.3 gm/dL (11.4-16.0); Lymphocytes % (A) 16 %; MCH 28.8 pg (25.0-35.0); MCV 87.3 fL (80.0-100.0); Mean Platelet Volume 6.9; Monocytes # (A) 0.5 k/uL (0-1.0); Monocytes % (A) 4 %; Neutrophils # (A) 9.6 k/uL (1.3-7.7); Neutrophils % (A) 78 %; Platelet Count 249 k/uL (150-450); RBC 5.32 m/uL (3.80-5.40); RDW 14.2 % (11.5-15.5); WBC 12.4 k/uL (3.8-10.6)
[2018-02-04 17:11] LABS: Albumin 4.1 g/dL (3.5-5.0); Calcium 9.3 mg/dL (8.4-10.2); Partial Thromboplastin Time 23.8 sec (22.0-30.0); Prothrombin Time 9.6 sec (9.0-12.0); Total Bilirubin 0.3 mg/dL (0.2-1.3); Total Protein 7.3 g/dL (6.3-8.2)
[2018-02-04 18:16] LABS: Appearance,Urine Clear (Clear); Bilirubin,Urine Negative (Negative); Blood,Urine Negative (Negative); Color,Urine Yellow; Glucose,Urine (UA) Negative (Negative); Ketones,Urine Negative (Negative); Leukocyte Esterase,Urine Negative (Negative); Nitrite,Urine Negative (Negative); PH, Urine 5.5 (5.0-8.0); Protein,Urine Negative (Negative); Specific Gravity,Urine 1.015 (1.001-1.035); Urobilinogen,Urine <2.0 mg/dL (<2.0)
--- NOTE | 2018-02-04 23:40 | XR ---
EXAMINATION TYPE: XR chest 2V DATE OF EXAM: 02/04/2018 COMPARISON: 08/03/2016 HISTORY: 57-year-old female with cervical spondylosis, lumbar spondylosis, presurgical exam TECHNIQUE: Frontal and lateral views FINDINGS: The cardiomediastinal silhouette, aorta, and pulmonary vasculature are within normal limits. There is mild diffuse interstitial prominence and peribronchial cuffing. No consolidation or pleural effusion . IMPRESSION: Chronic changes, possible bronchitis/asthma. Otherwise, no acute process seen.
== END | disposition home or self-care (01) ==
LOC: LABWHC1 15:43
PROVIDERS: ATTEND Neurological Surgery
DX: J98.4 Other disorders of lung (principal); M47.22 Other spondylosis with radiculopathy, cervical region; M47.26 Other spondylosis with radiculopathy, lumbar region; Z01.818 Encounter for other preprocedural examination
CPT/HCPCS: 36415; 71046; 80053; 81003; 85025; 85610; 85730; 87070; 93005

== ENCOUNTER → 2018-09-02 | Outpatient (CLI) | payer MEDICARE, OTHER ==
--- NOTE | 2018-09-02 16:59 | FL ---
MODIFIED SWALLOW / DEGLUTITION STUDY DATE OF EXAM: 09/02/2018 CLINICAL HISTORY: 58-year-old female reporting total swallowing since ACDF in February 2018, Dysphagia . TECHNIQUE: Deglutition study is performed utilizing thin liquid barium, honey and nectar thick liqui d barium, barium thick applesauce, and barium coated cracker. COMPARISON: None. Total fluoroscopy time: 2 minutes 53 seconds. Total images: None. Real-time fluoroscopy support was provided to speech pathology. FINDINGS: The oral and pharyngeal phases show satisfactory initiation and propagation with all modalities teste d. Normal mastication is seen with solid modalities tested. There is no evidence of penetration or aspiration with any modality tested. No significant pharyngeal residue was appreciated. C4-C6 ACDF i s demonstrated. ACDF hardware causes minimal impression on the posterior wall of the hypopharynx. No endoluminal compromise. IMPRESSION: Normal deglutition study. The C4-C6 ACF hardware causes only minimal impression on the posterior wal l of the hypopharynx. Please refer to speech therapist notes for further details if necessary.
== END | disposition home or self-care (01) ==
LOC: RADFLMAIN 10:53
PROVIDERS: ATTEND Neurological Surgery
DX: R13.10 Dysphagia, unspecified (principal)
CPT/HCPCS: 74230

== ENCOUNTER 2018-10-27 12:21 | Inpatient (IN) | payer MEDICARE, OTHER ==
[2018-10-27] MEDS ORDERED: AZITHROMYCIN 500 MG in SODIUM CHLORIDE 0.9% 250 ML IVPB STA (13:59)
[2018-10-27] MEDS ORDERED: ALBUTEROL NEBULIZED 2.5 MG/3 ML INHALATION PRN (13:59)
[2018-10-27] MEDS ORDERED: PNEUMONIA PROTOCOL UTILIZED 1 EACH MISC PO PRN (13:59)
[2018-10-27] MEDS ORDERED: methylPREDNISolone SOD SUCCI 125 MG/2 ML VIAL IV STA (14:02)
[2018-10-27] MEDS: PANTOPRAZOLE 40 MG/10 ML VIAL IVP SCH (14:56)
[2018-10-27] MEDS: HEPARIN SODIUM,PORCINE 5,000 UNIT/ML 1 ML VIAL SQ SCH ×2 (14:59→23:47)
--- NOTE | 2018-10-27 15:05 | XR ---
EXAMINATION TYPE: XR chest 2V DATE OF EXAM: 10/27/2018 COMPARISON: Chest x-ray February 04, 2018. HISTORY: Rule out infiltrate. Cough. TECHNIQUE: Frontal and lateral views of the chest are obtained. FINDINGS: There is chronic parenchymal change bilaterally without suspicious new focal air space opa city, pleural effusion, or pneumothorax seen. The cardiac silhouette size remains within normal limi ts with atherosclerotic change in aortic knob. Cholecystectomy clips are noted. There is mild right apical scarring redemonstrated. The osseous structures are intact. IMPRESSION: No suspicious new acute infiltrate.
--- NOTE | 2018-10-27 15:06 | XR ---
EXAMINATION TYPE: XR Hip Complete RT DATE OF EXAM: 10/27/2018 CLINICAL HISTORY: Right hip pain for one week. TECHNIQUE: AP and frogleg views of the right hip are obtained. COMPARISON: Right hip x-ray December 20, 2011. FINDINGS: There is no acute fracture/dislocation evident in the right hip. Mild axial joint space lo ss is not significantly changed from prior study. The overlying soft tissue appears unremarkable. IMPRESSION: As above, no significant change from 2012 x-ray.
[2018-10-27 15:37] LABS: Albumin 3.9 g/dL (3.5-5.0); Calcium 9.1 mg/dL (8.4-10.2); Potassium 4.5 mmol/L (3.5-5.1); Total Bilirubin 0.5 mg/dL (0.2-1.3)
[2018-10-27 15:38] LABS: Basophils % (A) 1 %; Eosinophils # (A) 0.1 k/uL (0-0.7); Eosinophils % (A) 1 %; HCT 44.8 % (34.0-46.0); HGB 14.4 gm/dL (11.4-16.0); Lymphocytes # (A) 1.9 k/uL (1.0-4.8); Lymphocytes % (A) 24 %; MCH 27.9 pg (25.0-35.0); MCHC 32.1 g/dL (31.0-37.0); MCV 87.1 fL (80.0-100.0); Mean Platelet Volume 6.7; Monocytes # (A) 0.4 k/uL (0-1.0); Monocytes % (A) 5 %; Neutrophils # (A) 5.1 k/uL (1.3-7.7); Neutrophils % (A) 66 %; Platelet Count 247 k/uL (150-450); RBC 5.14 m/uL (3.80-5.40); RDW 14.6 % (11.5-15.5); WBC 7.8 k/uL (3.8-10.6)
[2018-10-27] MEDS: ALBUTEROL NEBULIZED 2.5 MG/3 ML INHALATION SCH ×2 (16:40→19:05)
[2018-10-27 16:52] LABS: Glucose,Whole Blood 125 mg/dL (75-99)
[2018-10-27] MEDS: INSULIN ASPART (NovoLOG) 100 UNIT/ML VIAL SQ SCH ×2 (17:24→20:31)
[2018-10-27] MEDS: HYDROcodone/APAP 10-325MG 1 EACH TAB PO SCH ×2 (17:53→20:31)
[2018-10-27] MEDS ORDERED: methylPREDNISolone SOD SUCCI 125 MG/2 ML VIAL IV SCH (18:00)
[2018-10-27 20:31] LABS: Glucose,Whole Blood 220 mg/dL (75-99)
[2018-10-27] MEDS: ATORVASTATIN 20 MG TAB PO SCH (20:31)
[2018-10-27] MEDS: PREGABALIN 75 MG CAP PO SCH (20:31)
[2018-10-27] MEDS: methylPREDNISolone SOD SUCCI 125 MG/2 ML VIAL IV SCH (20:32)
[2018-10-27] MEDS: ALPRAZolam 1 MG TAB PO PRN (23:47)
[2018-10-28] MEDS: methylPREDNISolone SOD SUCCI 125 MG/2 ML VIAL IV SCH ×2 (05:23→11:14)
[2018-10-28 07:16] LABS: Glucose,Whole Blood 169 mg/dL (75-99)
[2018-10-28] MEDS: ALBUTEROL NEBULIZED 2.5 MG/3 ML INHALATION SCH ×4 (07:31→21:11)
[2018-10-28] MEDS: buPROPion XL 150 MG TAB.ER.24H PO SCH (08:13)
[2018-10-28] MEDS: HYDROcodone/APAP 10-325MG 1 EACH TAB PO SCH ×4 (08:13→21:41)
[2018-10-28] MEDS: FLUoxetine HCL 10 MG CAP PO SCH (08:14)
[2018-10-28] MEDS: INSULIN ASPART (NovoLOG) 100 UNIT/ML VIAL SQ SCH ×4 (08:14→21:42)
[2018-10-28] MEDS: PREGABALIN 75 MG CAP PO SCH ×2 (08:14→21:41)
[2018-10-28] MEDS: HEPARIN SODIUM,PORCINE 5,000 UNIT/ML 1 ML VIAL SQ SCH ×2 (08:14→17:26)
[2018-10-28] MEDS: FLUoxetine HCL 20 MG CAP PO SCH (08:14)
[2018-10-28] MEDS: PANTOPRAZOLE 40 MG/10 ML VIAL IVP SCH (08:15)
[2018-10-28 10:14] LABS: Basophils % (A) 0 %; Eosinophils % (A) 0 %; HCT 46.1 % (34.0-46.0); HGB 14.5 gm/dL (11.4-16.0); Lymphocytes # (A) 0.5 k/uL (1.0-4.8); Lymphocytes % (A) 4 %; MCHC 31.5 g/dL (31.0-37.0); MCV 88.8 fL (80.0-100.0); Mean Platelet Volume 6.8; Monocytes # (A) 0.2 k/uL (0-1.0); Monocytes % (A) 2 %; Neutrophils # (A) 10.4 k/uL (1.3-7.7); Neutrophils % (A) 93 %; Platelet Count 217 k/uL (150-450); RBC 5.19 m/uL (3.80-5.40); RDW 15.1 % (11.5-15.5); WBC 11.2 k/uL (3.8-10.6)
[2018-10-28 10:43] LABS: Calcium 8.8 mg/dL (8.4-10.2); Potassium 3.9 mmol/L (3.5-5.1)
--- NOTE | 2018-10-28 11:27 | CT ---
EXAMINATION TYPE: CT angio chest DATE OF EXAM: 10/28/2018 COMPARISON: Chest x-ray 10/27/2018 HISTORY: Cough, Hypoxemia, mass CT DLP: 160.3 mGycm Automated exposure control for dose reduction was used. CONTRAST: CTA scan of the thorax is performed with IV Contrast, patient injected with 96 mL of Isovue 370, pulm onary embolism protocol. MIP images are created and reviewed. 3D reconstructed images are created o n an independent workstation and reviewed. FINDINGS: LUNGS: The lungs are grossly clear, there is no concerning parenchymal mass or nodule identified. Emp hysematous changes are present. There is some mild prominence of interstitium. Some basilar scarring suspected on the left There is no pleural effusion or pneumothorax seen. The tracheobronchial tree is patent. AORTA: No additional significant abnormality is seen. MEDIASTINUM: There is satisfactory enhancement of the pulmonary artery and its branches, there is no CT evidence for pulmonary embolism. There are no greater than 1 cm hilar or mediastinal lymph nodes. No pericardial effusion is seen. OTHER: Some reflux of contrast into the inferior vena cava, hepatic veins could be indicative of rig ht heart failure. IMPRESSION: NO EVIDENT PULMONARY EMBOLUS. Emphysema and additional findings above
[2018-10-28 12:30] LABS: Glucose,Whole Blood 151 mg/dL (75-99)
--- NOTE | 2018-10-28 13:03 | P.CNOR ---
History of Present Illness - [facility] Consult date: 10/28/18 History of present illness: This patient is a 58 year old female with a past medical history of COPD that was direct admitted to [facility] on 10/27/[address] Ly for shortness of breath. The patient states she was in to see Dr. Ly in the office for shortness of breath yesterday, and she states she also was having right hip darrell n. Therefore a consult was placed to orthopedics. The patient states she did not have an injury or fall, she states she was walking about a week ago and heard a "pop" in her hip, she experienced immediate pain in the hip but did not fall to the ground. She states she was unable to bear weight on the right lower extremity following this "pop". She states over the last week, the pain has improved slightly, she has begun to bear weight on the right leg. Currently, she states the pain is localized to the posterior hip. She notes she has a history of a left tibia fracture that was managed non-operatively by Dr. Swanson in 2008. She states she has CRPS as a result, and experiences chronic pain of the lower leg, distal to the knee, as a result of this injury. Patient states she has trouble ambulating since this injury, and walks with a walker at baseline. Patient denies acute pain or injury elsewhere in the body. Patient denies additional complaints or concerns. Past Medical History Past Medical History: Cancer, COPD, GERD/Reflux, Hyperlipidemia, Musculoskeletal Disorder, Osteoarthritis (OA), Pneumonia Additional Past Medical History / Comment(s): Tracheobronchitis, uterine cancer with hysterectomy, hiatal hernia, 2008 pancreatitis, protein calorie malnutrition, R leg phlebitis, reflex sympathetic dystrophy affects 4 inches above r knee down to toes and in R hand to elbow, chronic R leg pain-past multiple fractures, chronic cervical pain-herniated discs, chronic back pain- herniated disc, arthritis also in hands/R knee, pt states she has had to use opiates for pain control for years, constipation, gestational diabetes. History of Any Multi-Drug Resistant Organisms: None Reported Past Surgical History: Section, Cholecystectomy, Hysterectomy, Orthopedic Surgery, Tubal Ligation Additional Past Surgical History / Comment(s): C-sections x 3, partial hysterectomy followed by total hysterectomy, R knee arthroscopy, L wrist gangli on cyst, colonoscopies/benign polypectomy, EGDs, lumbar injections, cervical surgery. Past Anesthesia/Blood Transfusion Reactions: No Reported Reaction Additional Past Anesthesia/Blood Transfusion Reaction / Comm: Pt states she wakes during surgery except for her most recent cervical surgery. Smoking Status: Current every day smoker - Past Family History Father Family Medical History: Congestive Heart Failure (CHF), Rheumatoid Arthritis (RA) Additional Family Medical History / Comment(s): gout Mother Family Medical History: Cancer Additional Family Medical History / Comment(s): lung cancer Brother(s) Family Medical History: Myocardial Infarction (AL) Additional Family Medical History / Comment(s): Brother of a AL at the age of 61 yrs. Medications and Allergies Home Medications Medication Instructions Recorded Confirmed Type ALPRAZolam [Xanax] 1 mg PO TID PRN 03/05/14 10/27/18 History HYDROcodone/APAP 10-325MG [[place] 1 tab PO QID 03/05/14 10/27/18 History 10-325] Simvastatin [Zocor] 40 mg PO HS 03/05/14 10/27/18 History fentaNYL 25MCG/HR PATCH [Duragesic 1 patch TRANSDERM Q72H 03/05/14 10/27/18 History 25MCG/HR] Ibuprofen [Motrin] 800 mg PO Q6H PRN 03/08/14 10/27/18 History FLUoxetine HCL 60 mg PO DAILY 08/03/16 10/27/18 History FLUoxetine HCL [PROzac] 10 mg PO DAILY 10/27/18 10/27/18 History Pregabalin [Lyrica] 150 mg PO BID 10/27/18 10/27/18 History buPROPion XL [Wellbutrin Xl] 150 mg PO DAILY 10/27/18 10/27/18 History Allergies Allergy/AdvReac Type Severity Reaction Status Date / Time doxycycline calcium Allergy Rash/Hives Verified 10/27/18 14:21 [From Vibramycin] doxycycline hyclate Allergy Rash/Hives Verified 10/27/18 14:21 [From Vibramycin] doxycycline monohydrate Allergy Rash/Hives Verified 10/27/18 14:21 [From Vibramycin] tetracycline [Tetracycline] Allergy Rash/Hives Verified 10/27/18 14:21 gluten AdvReac Unknown Verified 10/27/18 14:21 Physical Examination On examination, the patient is sitting up in bed in no apparent distress. She is alert and orientated x3. Her head ia atruamatic and normocephalic. Her breath ing appears non-labored. On inspection of the right hip, there is no erythema, ecchymosis, or warmth. There are no open wounds or lacerations. There is mild tenderness on palpation of the posterior hip. There is no pain on PROM of the hip or knee. There is pain on palpation of the lower leg, distal to the knee, although per patient this is chronic pain since her tibia fracture. Patient has full active ROM of the hip, she is able to perform a straight leg raise. There is no pain on log roll. The left lower extremity is warm and well-perfused with brisk capillary refill. Sensation is intact to light touch of the dorsal and plantar foot, as well as the first dorsal webspace. Results Hip x-ray right 10/27/18: No acute or healing fractures, no acute bony abnormalities. - Labs Labs: Abnormal Lab Results - Last 24 Hours (Table) 10/27/18 10/27/18 10/27/18 Range/Units 15:09 16:46 20:25 WBC (3.8-10.6) k/uL Hct (34.0-46.0) % Neutrophils # (1.3-7.7) k/uL Lymphocytes # (1.0-4.8) k/uL Chloride (98-107) mmol/L BUN (7-17) mg/dL Glucose 109 H (74-99) mg/dL POC Glucose (mg/dL) 125 H 220 H (75-99) mg/dL 10/28/18 10/28/18 10/28/18 Range/Units 07:15 09:41 09:41 WBC 11.2 H (3.8-10.6) k/uL Hct 46.1 H (34.0-46.0) % Neutrophils # 10.4 H (1.3-7.7) k/uL Lymphocytes # 0.5 L (1.0-4.8) k/uL Chloride 108 H (98-107) mmol/L BUN 18 H (7-17) mg/dL Glucose 195 H (74-99) mg/dL POC Glucose (mg/dL) 169 H (75-99) mg/dL Microbiology - Last 24 Hours (Table) 10/27/18 23:40 Gram Stain - Preliminary Sputum H & H 10/27/18 10/28/18 Range/Units 15:09 09:41 Hgb 14.4 14.5 (11.4-16.0) gm/dL Hct 44.8 46.1 H (34.0-46.0) % Result Diagrams: 10/28/18 09:41 10/28/18 09:41 Assessment and Plan Assessment: Hip pain, right. Plan: -No surgical intervention is planned at this time. Hip x-rays show no evidence of fracture. I recommend we observe her hip pain, as it has improved over the past week. I recommend rest, ice of the hip. -We discussed that if her hip pain continues or worsens during her hospital stay, we will obtain an MRI. Patient may follow-up on an outpatient basis, if needed. - We will continue to follow this patient and make recommendations as needed. -Patient discussed with Dr. Espinoza.
[2018-10-28] MEDS: AZITHROMYCIN 500 MG TAB PO SCH (13:25)
--- NOTE | 2018-10-28 14:49 | P.PN ---
Subjective Progress Note Date: 10/28/18 This is a 58-year-old female with multiple medical issues directly admitted from Dr. Ly's office yesterday with acute COPD exacerbation, possible early pneumonia. Reports exertional shortness of breath .Chest x-ray reported no suspicious new acute infiltrate. CTA reported no PE, emphysematous changes present, mild prominence of interstitium with bibasilar scarring on the left suspected, no pleural effusion, no greater than 1 cm hilar or mediastinal lymph nodes, possible mild right heart failure. Maintained on Rocephin, Zithromax, IV steroids, nebulized bronchodilators with breathing improving. Breathing Afebrile, maintaining O2 sats in the low 90s on room air. Patient also complains of right hip pain, orthopedics consulted. Right hip x-ray reported no significant change from 2012; no acute fracture/dislocation evident. Denies chest pain, palpitations. Denies lightheadedness dizziness or focal deficits. Afebrile, sputum culture pending. Objective - Vital Signs Vital signs: Vital Signs Temp 98.0 F 10/28/18 06:47 Pulse 84 10/28/18 07:31 Resp 15 10/28/18 06:47 BP 110/59 10/28/18 06:47 Pulse Ox 93 L 10/28/18 06:47 Intake & Output 10/27/18 10/28/18 10/28/18 18:59 06:59 18:59 Intake Total 540 200 Balance 540 200 Weight 61.859 kg Intake: Oral 540 200 Other: # Voids 2 1 - Exam PHYSICAL EXAM: VITAL SIGNS: As above GENERAL: Sitting up in bed, no acute distress HEENT: Conjunctivae normal. eyes normal. Oral mucosa moist NECK: No JVD. No thyroid enlargement. No LNs CARDIOVASCULAR: S1, S2 regular. No murmur RESPIRATION: Breath sounds diminished in the bases. Scattered rhonchi , no crackles. Occasional expiratory wheezing ABDOMEN: Soft, nontender . No guarding. no masses palpable. No ascites, No hepatosplenomegaly.Bowel sounds heard. LEGS: No edema. no swelling PSYCHIATRY: Alert and oriented X3, mood and affect normal. NERVOUS SYSTEM: Cranial N 2-12 grossly normal. Moves all 4 limbs. Diffuse weakness, No focal deficits. Strength and sensation grossly intact.. Skin: no lesions, no rash Joints: No active swelling. No inflammation. Lymphatic system. No LN neck axilla or groin. - Labs CBC & Chem 7: 10/28/18 09:41 10/28/18 09:41 Labs: Abnormal Lab Results - Last 24 Hours (Table) 10/27/18 10/27/18 10/27/18 Range/Units 15:09 16:46 20:25 Glucose 109 H (74-99) mg/dL POC Glucose (mg/dL) 125 H 220 H (75-99) mg/dL 10/28/18 Range/Units 07:15 Glucose (74-99) mg/dL POC Glucose (mg/dL) 169 H (75-99) mg/dL Microbiology - Last 24 Hours (Table) 10/27/18 23:40 Gram Stain - Preliminary Sputum Assessment and Plan Assessment: -Acute COPD exacerbation with possible early pneumonia -Possible mild component of acute right-sided CHF, workup in progress. -Gastroesophageal reflux disease -Hyperlipidemia -Osteoarthritis -History of uterine cancer with hysterectomy -Right hip pain, patient with chronic right leg pain with multiple fractures, -Chronic back pain -Anxiety, depression -Ongoing nicotine dependence Plan: Continue on current medication regime ,monitoring and symptomatic treatment. Echo ordered. Home meds have been reviewed and resumed. Nebulized bronchodilators, IV steroids and antibiotics initiated. Aggressive pulmonary toileting with incentive spirometer ordered. Smoking cessation readdressed. GI and DVT prophylaxis in place. Right hip pain, consult for orthopedic surgery in place, recommendations pending. Further recommendations to follow. The impression and plan of care has been dictated as directed. : I performed a history and examination of this patient, discussed the same with the dictator. I agree with the dictator's note ,documented as a scribe. Any additional findings or plans will be noted.
[2018-10-28 15:45] VITALS: BMI 23.3
[2018-10-28 17:25] LABS: Glucose,Whole Blood 228 mg/dL (75-99)
[2018-10-28] MEDS: methylPREDNISolone SOD SUCCI 40 MG/ML 1 ML VIAL IV SCH (17:26)
--- NOTE | 2018-10-28 17:52 | HP ---
HISTORY AND PHYSICAL CHIEF COMPLAINT: Am[age]-old white female came in with respiratory distress, failing outpatient treatment with antibiotics, steroids and updraft treatments. Due to extreme wheezing, shortness of breath, nonstop cough, she was admitted to the hospital for COPD exacerbation and tracheobronchitis due to cough, congestion, shortness of breath and dyspnea with exertion. Home medications have been restarted. PAST MEDICAL HISTORY: 1. COPD. 2. Nicotine addiction. 3. Chronic pain syndrome. 4. RSD. 5. She is also complaining of severe osteoarthritis of the hip. 6. History of GERD. 7. Dyslipidemia. 8. Osteoarthritis. 9. Hiatal hernia. 10.Pancreatitis. 11.History of malnutrition. 12.Reflex sympathetic dystrophy, right hand and elbow, right knee to the foot. 13.Multiple cervical disc disease status post cervical disc surgery. 14.Degenerative disc disease. 15.. 16.Cholecystectomy. 17.Hysterectomy. 18.Orthopedic surgery. 19.Tubal ligation. SOCIAL HISTORY: She is a current everyday smoker. No alcohol. No illicit drugs. FAMILY HISTORY: Father with congestive heart failure, rheumatoid arthritis. Mother with lung cancer. Brother with myocardial infarction. MEDICATIONS: Medications include: 1. Xanax for anxiety. 2. [place] 10/325 q.i.d. chronic pain. 3. Zocor 40 mg at bedtime, dyslipidemia. 4. Fentanyl mcg/hour patch, transdermal. 5. Motrin 800 q.6. 6. Fluoxetine 60 mg daily. 7. Lyrica 150 b.i.d. 8. Wellbutrin 150 daily. ALLERGIES: 1. DOXYCYCLINE. 2. TETRACYCLINE. 3. GLUTEN. PHYSICAL EXAMINATION: LUNGS: Scattered wheezes and and rhonchi x4. Congestive cough, nonstop. PUPILS: Equal, round, reactive. NECK: Supple. CARDIOVASCULAR: Some tachycardia. S1, S2. GI: Soft. MUSCULOSKELETAL: the right hip, which she felt a pop a few days ago. Tenderness over cervical and lumbar spinal muscles. Decreased strength . Labs were reviewed. ASSESSMENT: 1. Chronic obstructive pulmonary disease exacerbation. 2. Nicotine addiction. 3. Tracheobronchitis. 4. Chronic hip pain. X-ray will be done to rule out fracture. Please see further orders. IV steroids, updrafts, antibiotics. CT scan of the chest. MMODL / IJN: [id number] /
[2018-10-28 20:24] LABS: Glucose,Whole Blood 165 mg/dL (75-99)
[2018-10-28] MEDS: ATORVASTATIN 20 MG TAB PO SCH (21:41)
[2018-10-28] MEDS: ALPRAZolam 1 MG TAB PO PRN (22:32)
[2018-10-29] MEDS: methylPREDNISolone SOD SUCCI 40 MG/ML 1 ML VIAL IV SCH ×2 (00:15→07:49)
[2018-10-29] MEDS: HEPARIN SODIUM,PORCINE 5,000 UNIT/ML 1 ML VIAL SQ SCH ×3 (00:15→14:51)
[2018-10-29 07:20] LABS: Glucose,Whole Blood 162 mg/dL (75-99)
[2018-10-29] MEDS: ALBUTEROL NEBULIZED 2.5 MG/3 ML INHALATION SCH ×2 (07:23→11:46)
[2018-10-29] MEDS: INSULIN ASPART (NovoLOG) 100 UNIT/ML VIAL SQ SCH ×4 (07:49→21:38)
[2018-10-29] MEDS: PANTOPRAZOLE 40 MG TABLET PO SCH (07:49)
[2018-10-29] MEDS: buPROPion XL 150 MG TAB.ER.24H PO SCH (07:49)
[2018-10-29] MEDS: FLUoxetine HCL 10 MG CAP PO SCH (07:50)
[2018-10-29] MEDS: FLUoxetine HCL 20 MG CAP PO SCH (07:50)
[2018-10-29] MEDS: AZITHROMYCIN 500 MG TAB PO SCH (07:50)
[2018-10-29] MEDS: PREGABALIN 75 MG CAP PO SCH ×2 (07:50→21:38)
[2018-10-29] MEDS: HYDROcodone/APAP 10-325MG 1 EACH TAB PO SCH ×4 (07:50→21:39)
[2018-10-29 10:19] LABS: Basophils % (A) 0 %; Eosinophils # (A) 0.1 k/uL (0-0.7); Eosinophils % (A) 0 %; HCT 42.4 % (34.0-46.0); HGB 13.2 gm/dL (11.4-16.0); Lymphocytes # (A) 0.3 k/uL (1.0-4.8); Lymphocytes % (A) 2 %; MCH 28.2 pg (25.0-35.0); MCHC 31.2 g/dL (31.0-37.0); MCV 90.4 fL (80.0-100.0); Monocytes # (A) 0.5 k/uL (0-1.0); Monocytes % (A) 3 %; Neutrophils # (A) 16.2 k/uL (1.3-7.7); Neutrophils % (A) 94 %; Platelet Count 224 k/uL (150-450); RBC 4.69 m/uL (3.80-5.40); RDW 15.5 % (11.5-15.5); WBC 17.2 k/uL (3.8-10.6)
[2018-10-29 10:39] LABS: Calcium 8.7 mg/dL (8.4-10.2); Potassium 4.3 mmol/L (3.5-5.1)
--- NOTE | 2018-10-29 11:17 | ECHOF ---
Referral Reason:LV function MEASUREMENTS -------- HEIGHT: 162.6 cm WEIGHT: 61.7 kg BP: 92/53 RVIDd: 2.1 cm (< 3.3) IVSd: 0.8 cm (0.6 - 1.1) LVIDd: 3.8 cm (3.9 - 5.3) LVPWd: 1.1 cm (0.6 - 1.1) IVSs: 1.6 cm LVIDs: 2.0 cm LVPWs: 1.6 cm LAESV Index (A-L): 24.20 ml/m Ao Diam: 2.8 cm (2.0 - 3.7) AV Cusp: 1.8 cm (1.5 - 2.6) LA Diam: 3.0 cm (2.7 - 3.8) EPSS: 0.3 cm MV E Arjun: 1.01 m/s MV DecT: 195 ms MV A Arjun: 0.83 m/s MV E/A Ratio: 1.22 RAP: 5.00 mmHg RVSP: 34.25 mmHg MV EF SLOPE: 138.56 mm/s (70 - 150) MV EXCURSION: 2.38 cm (> 18.000) FINDINGS -------- Sinus rhythm. This was a technically good study. The left ventricular size is normal. Left ventricular wall thickness is normal. Overall left vent ricular systolic function is normal with, an EF between 55 - 60 %. The right ventricle is normal in size. Left atrium is normal size by volume. The right atrial size is normal. Interatrial and interventricular septum intact. The aortic valve is trileaflet, and appears structurally normal. No aortic stenosis or regurgitation. The mitral valve is normal. There is trace mitral regurgitation. The tricuspid valve appears structurally normal. Mild tricuspid regurgitation present. Right vent ricular systolic pressure is normal at < 35 mmHg. There is no pulmonic regurgitation present. The aortic root size is normal. The inferior vena cava was not well visualized. There is no pericardial effusion. CONCLUSIONS -------- 1. Sinus rhythm. 2. This was a technically good study. 3. The left ventricular size is normal. 4. Left ventricular wall thickness is normal. 5. Overall left ventricular systolic function is normal with, an EF between 55 - 60 %. 6. The right ventricle is normal in size. 7. Left atrium is normal size by volume. 8. The aortic valve is trileaflet, and appears structurally normal. No aortic stenosis or regurgitati on. 9. The mitral valve is normal. 10. There is trace mitral regurgitation. 11. The tricuspid valve appears structurally normal. 12. Mild tricuspid regurgitation present. 13. Right ventricular systolic pressure is normal at < 35 mmHg. 14. There is no pulmonic regurgitation present. 15. The aortic root size is normal. 16. There is no pericardial effusion. ASSEMBLY RIVETER: Justine Mitchell RDCS
[2018-10-29 12:14] LABS: Glucose,Whole Blood 142 mg/dL (75-99)
[2018-10-29] MEDS: SODIUM CHLORIDE 0.9% 1,000 ML IV SCH (14:24)
--- NOTE | 2018-10-29 14:26 | P.PN ---
Subjective Progress Note Date: 10/29/18 This is a 58-year-old female with multiple medical issues directly admitted from Dr. Ly's office yesterday with acute COPD exacerbation, possible early pneumonia. Reports exertional shortness of breath .Chest x-ray reported no suspicious new acute infiltrate. CTA reported no PE, emphysematous changes present, mild prominence of interstitium with bibasilar scarring on the left suspected, no pleural effusion, no greater than 1 cm hilar or mediastinal lymph nodes, possible mild right heart failure. Maintained on Rocephin, Zithromax, IV steroids, nebulized bronchodilators with breathing improving. Breathing Afebrile, maintaining O2 sats in the low 90s on room air. Patient also complains of right hip pain, orthopedics consulted. Right hip x-ray reported no significant change from 2012; no acute fracture/dislocation evident. Denies chest pain, palpitations. Denies lightheadedness dizziness or focal deficits. Afebrile, sputum culture pending. 10/29/2018 nonproductive barky cough, more loose. Reports decreased oral intake secondary to calf. Complains of headache related to cough. Echo reported normal LV function, EF 55-60%.Evaluated by orthopedics with no further intervention recommended at this time. Afebrile. Objective - Vital Signs Vital signs: Vital Signs Temp 98.3 F 10/29/18 04:45 Pulse 80 10/29/18 07:40 Resp 20 10/29/18 04:45 BP 113/64 10/29/18 04:45 Pulse Ox 95 10/29/18 04:45 Intake & Output 10/28/18 10/29/18 10/29/18 18:59 06:59 18:59 Intake Total 400 Balance 400 Weight 61.859 kg Intake: Oral 400 Other: Voiding Method Toilet Toilet # Voids 3 1 - Exam PHYSICAL EXAM: VITAL SIGNS: As above GENERAL: Sitting up in bed, no acute distress HEENT: Conjunctivae normal. eyes normal. Oral mucosa moist NECK: No JVD. No thyroid enlargement. No LNs CARDIOVASCULAR: S1, S2 regular. No murmur RESPIRATION: Breath sounds diminished in the bases. Scattered rhonchi , no crackles. Occasional expiratory wheezing ABDOMEN: Soft, nontender . No guarding. no masses palpable. No ascites, No hepatosplenomegaly.Bowel sounds heard. LEGS: No edema. no swelling PSYCHIATRY: Alert and oriented X3, mood and affect normal. NERVOUS SYSTEM: Cranial N 2-12 grossly normal. Moves all 4 limbs. Diffuse weakness, No focal deficits. Skin: no lesions, no rash - Labs CBC & Chem 7: 10/29/18 09:44 10/29/18 09:44 Labs: Abnormal Lab Results - Last 24 Hours (Table) 10/28/18 10/28/18 10/28/18 Range/Units 09:41 09:41 12:28 WBC 11.2 H (3.8-10.6) k/uL Hct 46.1 H (34.0-46.0) % Neutrophils # 10.4 H (1.3-7.7) k/uL Lymphocytes # 0.5 L (1.0-4.8) k/uL Chloride 108 H (98-107) mmol/L BUN 18 H (7-17) mg/dL Glucose 195 H (74-99) mg/dL POC Glucose (mg/dL) 151 H (75-99) mg/dL 10/28/18 10/28/18 10/29/18 Range/Units 17:21 20:01 07:15 WBC (3.8-10.6) k/uL Hct (34.0-46.0) % Neutrophils # (1.3-7.7) k/uL Lymphocytes # (1.0-4.8) k/uL Chloride (98-107) mmol/L BUN (7-17) mg/dL Glucose (74-99) mg/dL POC Glucose (mg/dL) 228 H 165 H 162 H (75-99) mg/dL Microbiology - Last 24 Hours (Table) 10/27/18 23:40 Gram Stain - Preliminary Sputum Assessment and Plan Assessment: -Acute COPD exacerbation with possible early pneumonia -Possible mild component of acute right-sided CHF, workup in progress. -Gastroesophageal reflux disease -Hyperlipidemia -Osteoarthritis -History of uterine cancer with hysterectomy -Right hip pain, patient with chronic right leg pain with multiple fractures, -Chronic back pain -Anxiety, depression -Ongoing nicotine dependence Plan: Continue on current medication regime ,monitoring and symptomatic treatment. Maintain Nebulized bronchodilators, steroids and antibiotics. Coumadin with codeine cough syrup ordered. Aggressive pulmonary toileting with incentive spirometer ordered. Smoking cessation readdressed. GI and DVT prophylaxis in place. Increased stimulation as tolerated. Discharge planning in progress for tomorrow. The impression and plan of care has been dictated as directed. : I performed a history and examination of this patient, discussed the same with the dictator. I agree with the dictator's note ,documented as a scribe. Any additional findings or plans will be noted.
[2018-10-29] MEDS: PROMETHAZ-COD 6.25-10 MG/5 ML 5 ML CUP PO PRN ×2 (14:50→21:45)
[2018-10-29] MEDS: SYMBICORT 160-4.5 MCG INHALER INHALATION SCH ×2 (15:25→21:04)
[2018-10-29] MEDS: IPRATROPIUM-ALBUTEROL 3 ML NEB INHALATION SCH ×2 (15:26→21:06)
[2018-10-29] MEDS ORDERED: IPRATROPIUM-ALBUTEROL 3 ML NEB INHALATION PRN (16:00)
--- NOTE | 2018-10-29 16:48 | P.PN ---
Subjective Progress Note Date: 10/29/18 This patient is a 58 year old female with a past medical history of COPD that was direct admitted to [facility] on 10/27/[address] Ly for shortness of breath. The patient states she was in to see Dr. Ly in the office for shortness of breath yesterday, and she states she also was having right hip pain. Therefore a consult was placed to orthopedics. The patient states she did not have an injury or fall, she states she was walking about a week ago and heard a "pop" in her hip, she experienced immediate pain in the hip but did not fall to the ground. She states she was unable to bear weight on the right lower extremity following this "pop". She states over the last week, the pain has improved slightly, she has begun to bear weight on the right leg. Currently, she states the pain is localized to the posterior hip. She notes she has a history of a left tibia fracture that was managed non-operatively by Dr. Swanson in 2008. She states she has CRPS as a result, and experiences chronic pain of the lower leg, distal to the knee, as a result of this injury. Patient states she has trouble ambulating since this injury, and walks with a walker at baseline. Patient denies acute pain or injury elsewhere in the body. Patient denies additional complaints or concerns. 10/29/18: Patient states she is still experiencing hip pain, located to the posterior hip. She states the pain has improved over the past week. She states the pain is exacerbated by ambulation. Denies any erythema, warmth of the area. Denies any new orthopedic complaints today. Objective - Vital Signs Vital signs: Vital Signs Temp 97.9 F 10/29/18 12:24 Pulse 84 10/29/18 15:46 Resp 18 10/29/18 12:24 BP 94/51 10/29/18 12:24 Pulse Ox 93 L 10/29/18 12:24 Intake & Output 10/28/18 10/29/18 10/29/18 18:59 06:59 18:59 Intake Total 400 Balance 400 Weight 61.859 kg Intake: Oral 400 Other: Voiding Method Toilet Toilet # Voids 3 1 2 - Exam On examination, the patient is sitting up in bed in no apparent distress. She is alert and orientated x3. On inspection of the right hip, there is no erythema, ecchymosis, or warmth. There are no open wounds or lacerations. There is mild tenderness on palpation of the posterior hip. There is no pain on PROM of the hip or knee. Patient has full active ROM of the hip, she is able to perform a straight leg raise. There is no pain on log roll. The left lower extremity is warm and well-perfused with brisk capillary refill. Sensation is intact to light touch of the dorsal and plantar foot, as well as the first dorsal webspace. - Labs CBC & Chem 7: 10/29/18 09:44 10/29/18 09:44 Labs: Abnormal Lab Results - Last 24 Hours (Table) 10/28/18 10/28/18 10/29/18 Range/Units 17:21 20:01 07:15 WBC (3.8-10.6) k/uL Neutrophils # (1.3-7.7) k/uL Lymphocytes # (1.0-4.8) k/uL Chloride (98-107) mmol/L BUN (7-17) mg/dL Glucose (74-99) mg/dL POC Glucose (mg/dL) 228 H 165 H 162 H (75-99) mg/dL 10/29/18 10/29/18 10/29/18 Range/Units 09:44 09:44 12:02 WBC 17.2 H (3.8-10.6) k/uL Neutrophils # 16.2 H (1.3-7.7) k/uL Lymphocytes # 0.3 L (1.0-4.8) k/uL Chloride 111 H (98-107) mmol/L BUN 27 H (7-17) mg/dL Glucose 157 H (74-99) mg/dL POC Glucose (mg/dL) 142 H (75-99) mg/dL Assessment and Plan Assessment: Hip pain, right. Plan: -No surgical intervention is planned at this time. Hip x-rays show no evidence of fracture. Recommended observation of her hip pain at this time. I recommended rest, icing of the hip. I discussed with the patient that if her hip pain continues after discharge, she should follow up in the office with Dr. Gregg Spaulding on an outpatient basis. - We will make recommendations as needed. -Patient discussed with Dr. Espinoza.
[2018-10-29 17:12] LABS: Glucose,Whole Blood 152 mg/dL (75-99)
--- NOTE | 2018-10-29 19:30 | P.CNPUL ---
History of Present Illness Consult date: 10/29/18 Reason for consult: dyspnea, cough, COPD Chief complaint: Shortness of breath cough and sputum production History of present illness: This is a 58-year-old female with the smoking history significant for started around teenage years she has a history of C-spine surgery anterior approach, for the last 2-3 weeks has been more short of breath which is progressively getting worse with increased cough congestion and wheezing up to a point decided to come into the hospital for further evaluation she denies any hemoptysis does have cough is productive of yellow sputum has ongoing shortness of breath she is still smoking but recently has stopped smoking, she underwent a chest x-ray which is unremarkable also computed tomography scan of the chest was negative for pulmonary embolism also negative for any acute active processes in lung parenchyma or masslike process Review of Systems All systems: negative Past Medical History Past Medical History: Cancer, COPD, GERD/Reflux, Hyperlipidemia, Musculoskeletal Disorder, Osteoarthritis (OA), Pneumonia Additional Past Medical History / Comment(s): Tracheobronchitis, uterine cancer with hysterectomy, hiatal hernia, 2009 pancreatitis, protein calorie malnutrition, R leg phlebitis, reflex sympathetic dystrophy affects 4 inches above r knee down to toes and in R hand to elbow, chronic R leg pain-past multiple fractures, chronic cervical pain-herniated discs, chronic back pain- herniated disc, arthritis also in hands/R knee, pt states she has had to use opiates for pain control for years, constipation, gestational diabetes. History of Any Multi-Drug Resistant Organisms: None Reported Past Surgical History: Section, Cholecystectomy, Hysterectomy, Orthopedic Surgery, Tubal Ligation Additional Past Surgical History / Comment(s): C-sections x 3, partial hysterectomy followed by total hysterectomy, R knee arthroscopy, L wrist ganglion cyst, colonoscopies/benign polypectomy, EGDs, lumbar injections, cervical surgery. Past Anesthesia/Blood Transfusion Reactions: No Reported Reaction Additional Past Anesthesia/Blood Transfusion Reaction / Comment(s): Pt states she wakes during surgery except for her most recent cervical surgery. Smoking Status: Current every day smoker - Past Family History Father Family Medical History: Congestive Heart Failure (CHF), Rheumatoid Arthritis (RA) Additional Family Medical History / Comment(s): gout Mother Family Medical History: Cancer Additional Family Medical History / Comment(s): lung cancer Brother(s) Family Medical History: Myocardial Infarction ([place]) Additional Family Medical History / Comment(s): Brother of a [place] at the age of 61 yrs. Medications and Allergies Home Medications Medication Instructions Recorded Confirmed Type ALPRAZolam [Xanax] 1 mg PO TID PRN 03/05/14 10/27/18 History HYDROcodone/APAP 10-325MG [[place] 1 tab PO QID 03/05/14 10/27/18 History 10-325] Simvastatin [Zocor] 40 mg PO HS 03/05/14 10/27/18 History fentaNYL 25MCG/HR PATCH [Duragesic 1 patch TRANSDERM Q72H 03/05/14 10/27/18 History 25MCG/HR] Ibuprofen [Motrin] 800 mg PO Q6H PRN 03/08/14 10/27/18 History FLUoxetine HCL 60 mg PO DAILY 08/03/16 10/27/18 History FLUoxetine HCL [PROzac] 10 mg PO DAILY 10/27/18 10/27/18 History Pregabalin [Lyrica] 150 mg PO BID 10/27/18 10/27/18 History buPROPion XL [Wellbutrin XL] 150 mg PO DAILY 10/27/18 10/27/18 History Azithromycin [Zithromax] 500 mg PO Q24H #5 tab 10/29/18 Rx Budesonide-Formot 160-4.5 Mcg 2 puff INHALATION RT-BID #1 inh 10/29/18 Rx [Symbicort 160-4.5 Mcg Inhaler] Cefuroxime Axetil [Ceftin] 500 mg PO BID 3 Days #6 tab 10/29/18 Rx Ipratropium-Albuterol Nebulize 3 ml INHALATION QID #120 neb 10/29/18 Rx [Duoneb 0.5 mg-3 mg/3 ml Soln] Pantoprazole [Protonix] 40 mg PO CHELITA-WILEYFSTigre #15 tablet. 10/29/18 Rx predniSONE 10 mg PO DIRECTED #30 tab 10/29/18 Rx Allergies Allergy/AdvReac Type Severity Reaction Status Date / Time doxycycline calcium Allergy Rash/Hives Verified 10/27/18 14:21 [From Vibramycin] doxycycline hyclate Allergy Rash/Hives Verified 10/27/18 14:21 [From Vibramycin] doxycycline monohydrate Allergy Rash/Hives Verified 10/27/18 14:21 [From Vibramycin] tetracycline [Tetracycline] Allergy Rash/Hives Verified 10/27/18 14:21 gluten AdvReac Unknown Verified 10/27/18 14:21 Physical Exam Vitals: Vital Signs Temp Pulse Pulse Resp BP BP Pulse Ox 10/29/18 15:46 84 10/29/18 15:26 84 10/29/18 12:24 97.9 F 84 18 94/51 93 L 10/29/18 12:00 84 10/29/18 11:46 80 10/29/18 07:40 80 10/29/18 07:24 80 10/29/18 04:45 98.3 F 77 20 113/64 95 10/28/18 21:25 97.7 F 89 83 22 96/57 99 10/28/18 21:12 84 16 Intake and Output 10/29/18 10/29/18 10/29/18 06:59 14:59 22:59 Intake Total 100 Balance 100 Intake: Oral 100 Other: Voiding Method Toilet Toilet # Voids 1 2 - Constitutional General appearance: average body habitus, cooperative, disheveled - EENT Eyes: EOMI, PERRLA, poor dentition, normal appearance ENT: normal oropharynx Ears: bilateral: normal - Neck Neck: normal ROM Carotids: bilateral: upstroke normal, bruit absent Thyroid: bilateral: normal size - Respiratory Respiratory: bilateral: diminished, rhonchi, wheezing, prolonged expiration, negative: CTA, dullness, rales - Cardiovascular Rhythm: regular Heart sounds: normal: S1, S2 - Gastrointestinal General gastrointestinal: decreased bowel sounds, soft - Integumentary Integumentary: decreased turgor, normal - Neurologic Neurologic: CNII-XII intact - Musculoskeletal Musculoskeletal: gait normal, generalized weakness, strength equal bilaterally - Psychiatric Psychiatric: A&O x's 3, appropriate affect, intact judgment & insight Results - Laboratory Findings CBC and BMP: 10/29/18 09:44 10/29/18 09:44 Abnormal lab findings: Abnormal Labs 10/27/18 10/27/18 10/27/18 15:09 16:46 20:25 WBC Hct Neutrophils # Lymphocytes # Chloride BUN Glucose 109 H POC Glucose (mg/dL) 125 H 220 H 10/28/18 10/28/18 10/28/18 07:15 09:41 09:41 WBC 11.2 H Hct 46.1 H Neutrophils # 10.4 H Lymphocytes # 0.5 L Chloride 108 H BUN 18 H Glucose 195 H POC Glucose (mg/dL) 169 H 10/28/18 10/28/18 10/28/18 12:28 17:21 20:01 WBC Hct Neutrophils # Lymphocytes # Chloride BUN Glucose POC Glucose (mg/dL) 151 H 228 H 165 H 10/29/18 10/29/18 10/29/18 07:15 09:44 09:44 WBC 17.2 H Hct Neutrophils # 16.2 H Lymphocytes # 0.3 L Chloride 111 H BUN 27 H Glucose 157 H POC Glucose (mg/dL) 162 H 10/29/18 10/29/18 12:02 17:08 WBC Hct Neutrophils # Lymphocytes # Chloride BUN Glucose POC Glucose (mg/dL) 142 H 152 H - Diagnostic Findings Chest x-ray: report reviewed, image reviewed CT scan - chest: report reviewed, image reviewed (Finding as noted above) Assessment and Plan Assessment: Acute COPD exacerbation Purulent tracheobronchitis Generalized anxiety disorder Dyslipidemia Depression Active smoker nicotine abuse Plan: IV steroids Breathing treatments Antibiotics Broad-spectrum antibiotics Follow-up on her sputum studies Further recommendations pending plan of care as per clinical response of the patient Time with Patient: Greater than 30
[2018-10-29 20:51] LABS: Glucose,Whole Blood 144 mg/dL (75-99)
[2018-10-29] MEDS: ATORVASTATIN 20 MG TAB PO SCH (21:38)
[2018-10-30] MEDS: HEPARIN SODIUM,PORCINE 5,000 UNIT/ML 1 ML VIAL SQ SCH ×2 (01:04→07:45)
[2018-10-30] MEDS: SODIUM CHLORIDE 0.9% 1,000 ML IV SCH (04:33)
[2018-10-30 05:15] VITALS: BP 101/62; TEMP 98.2
[2018-10-30 07:04] LABS: Glucose,Whole Blood 100 mg/dL (75-99)
[2018-10-30] MEDS: INSULIN ASPART (NovoLOG) 100 UNIT/ML VIAL SQ SCH (07:31)
[2018-10-30] MEDS: FLUoxetine HCL 20 MG CAP PO SCH (07:45)
[2018-10-30] MEDS: FLUoxetine HCL 10 MG CAP PO SCH (07:45)
[2018-10-30] MEDS: PREGABALIN 75 MG CAP PO SCH (07:45)
[2018-10-30] MEDS: PANTOPRAZOLE 40 MG TABLET PO SCH (07:45)
[2018-10-30] MEDS: HYDROcodone/APAP 10-325MG 1 EACH TAB PO SCH (07:45)
[2018-10-30] MEDS: buPROPion XL 150 MG TAB.ER.24H PO SCH (07:45)
[2018-10-30] MEDS ORDERED: predniSONE 20 MG TAB PO SCH (09:00)
[2018-10-30 09:12] LABS: Basophils % (A) 0 %; Eosinophils % (A) 0 %; HCT 42.5 % (34.0-46.0); HGB 13.5 gm/dL (11.4-16.0); Lymphocytes # (A) 2.1 k/uL (1.0-4.8); Lymphocytes % (A) 23 %; MCH 27.9 pg (25.0-35.0); MCHC 31.8 g/dL (31.0-37.0); MCV 87.8 fL (80.0-100.0); Monocytes # (A) 0.5 k/uL (0-1.0); Monocytes % (A) 5 %; Neutrophils # (A) 6.4 k/uL (1.3-7.7); Neutrophils % (A) 70 %; Platelet Count 186 k/uL (150-450); RBC 4.84 m/uL (3.80-5.40); RDW 15.1 % (11.5-15.5); WBC 9.2 k/uL (3.8-10.6)
[2018-10-30 09:27] LABS: Calcium 8.5 mg/dL (8.4-10.2); Potassium 4.4 mmol/L (3.5-5.1)
--- NOTE | 2018-10-30 09:34 | P.PN ---
Subjective Progress Note Date: 10/30/18 Principal diagnosis: Severe COPD with acute exacerbation, purulent tracheobronchitis, generalized anxiety disorder, dyslipidemia, depression, active smoker, extensive cervical spine disease status post C-spine surgery 10/30/2018, patient seen eval reexamined during the rounds today she is doing slightly better still congested able to get some sleep overall respiratory status is stable she denies any treatment for smoking cessation she would like to continue as cold turkey Ammann cough and congestion is still there but improved labs reviewed medications reviewed This is a 58-year-old female with the smoking history significant for started around teenage years she has a history of C-spine surgery anterior approach, for the last 2-3 weeks has been more short of breath which is progressively getting worse with increased cough congestion and wheezing up to a point decided to come into the hospital for further evaluation she denies any hemoptysis does have cough is productive of yellow sputum has ongoing shortness of breath she is still smoking but recently has stopped smoking, she underwent a chest x-ray which is unremarkable also computed tomography scan of the chest was negative for pulmonary embolism also negative for any acute active processes in lung parenchyma or masslike process Objective - Vital Signs Vital signs: Vital Signs Temp 98.2 F 10/30/18 04:50 Pulse 64 10/30/18 04:50 Resp 20 10/30/18 04:50 BP 101/62 10/30/18 04:50 Pulse Ox 96 10/30/18 04:50 Intake & Output 10/29/18 10/30/18 10/30/18 18:59 06:59 18:59 Intake Total 475 Balance 475 Intake: Intake, IV Titration 375 Amount Sodium Chloride 0.9% 1, 375 000 ml @ 75 mls/hr IV . [id number] [facility] Rx#:[id number] Oral 100 Other: Voiding Method Toilet # Voids 2 1 - Exam - Constitutional General appearance: average body habitus, cooperative, disheveled - EENT Eyes: EOMI, PERRLA, poor dentition, normal appearance ENT: normal oropharynx Ears: bilateral: normal - Neck Neck: normal ROM Carotids: bilateral: upstroke normal, bruit absent Thyroid: bilateral: normal size - Respiratory Respiratory: bilateral: diminished, rhonchi, wheezing, prolonged expiration, negative: CTA, dullness, rales - Cardiovascular Rhythm: regular Heart sounds: normal: S1, S2 - Gastrointestinal General gastrointestinal: decreased bowel sounds, soft - Integumentary Integumentary: decreased turgor, normal - Neurologic Neurologic: CNII-XII intact - Musculoskeletal Musculoskeletal: gait normal, generalized weakness, strength equal bilaterally - Psychiatric Psychiatric: A&O x's 3, appropriate affect, intact judgment & insight - Labs CBC & Chem 7: 10/30/18 08:19 10/30/18 08:19 Labs: Abnormal Lab Results - Last 24 Hours (Table) 10/29/18 10/29/18 10/29/18 Range/Units 09:44 09:44 12:02 WBC 17.2 H (3.8-10.6) k/uL Neutrophils # 16.2 H (1.3-7.7) k/uL Lymphocytes # 0.3 L (1.0-4.8) k/uL Chloride 111 H (98-107) mmol/L BUN 27 H (7-17) mg/dL Glucose 157 H (74-99) mg/dL POC Glucose (mg/dL) 142 H (75-99) mg/dL 10/29/18 10/29/18 10/30/18 Range/Units 17:08 20:43 07:02 WBC (3.8-10.6) k/uL Neutrophils # (1.3-7.7) k/uL Lymphocytes # (1.0-4.8) k/uL Chloride (98-107) mmol/L BUN (7-17) mg/dL Glucose (74-99) mg/dL POC Glucose (mg/dL) 152 H 144 H 100 H (75-99) mg/dL 10/30/18 Range/Units 08:19 WBC (3.8-10.6) k/uL Neutrophils # (1.3-7.7) k/uL Lymphocytes # (1.0-4.8) k/uL Chloride 112 H (98-107) mmol/L BUN 31 H (7-17) mg/dL Glucose 106 H (74-99) mg/dL POC Glucose (mg/dL) (75-99) mg/dL Assessment and Plan Assessment: Acute COPD exacerbation Purulent tracheobronchitis Generalized anxiety disorder Dyslipidemia Depression Active smoker nicotine abuse Plan: IV steroids Breathing treatments Antibiotics Broad-spectrum antibiotics Follow-up on her sputum studies Further recommendations pending plan of care as per clinical response of the patient Time with Patient: Greater than 30
[2018-10-30] MEDS: SYMBICORT 160-4.5 MCG INHALER INHALATION SCH (09:37)
[2018-10-30] MEDS: IPRATROPIUM-ALBUTEROL 3 ML NEB INHALATION SCH (09:37)
[2018-10-30 09:49] VITALS: PULSE 80
[2018-10-30 09:58] VITALS: RESP 16
--- NOTE | 2018-10-30 10:16 | P.DS ---
Providers Date of admission: 10/27/18 13:24 Expected date of discharge: 10/30/18 Attending physician: Maurilio Ly Consults: 10/27/18 14:07 Consult Physician Routine Consulting Provider: Garth Guaman Consult Reason/Comments: R Hip Pain Do you want consulting provider notified?: Yes 10/28/18 16:42 Consult Physician Routine Consulting Provider: Onel Selby Consult Reason/Comments: copd Do you want consulting provider notified?: Yes Primary care physician: Maurilio Ly [facility] Course: Final Diagnoses: -Acute COPD exacerbation with acute tracheobronchitis, possible early pneumonia. Emphysematous changes per CTA. PE ruled out. -Possible mild component of acute right-sided CHF, echo repeated a normal LV function, EF 55-60%. -Gastroesophageal reflux disease -Hyperlipidemia -Osteoarthritis -History of uterine cancer with hysterectomy -Chronic Right hip pain,fractures ruled out -Chronic back pain -Anxiety, depression -Ongoing nicotine dependence Hospital course:This is a 58-year-old female with multiple medical issues directly admitted from Dr. Ly's office yesterday with acute COPD exacerbation, possible early pneumonia. Reports exertional shortness of breath .Chest x-ray reported no suspicious new acute infiltrate. CTA reported no PE, emphysematous changes present, mild prominence of interstitium with bibasilar scarring on the left suspected, no pleural effusion, no greater than 1 cm hilar or mediastinal lymph nodes, possible mild right heart failure. Maintained on Rocephin, Zithromax, IV steroids, nebulized bronchodilators with breathing im proving. Breathing Afebrile, maintaining O2 sats in the low 90s on room air. Patient also complains of right hip pain, orthopedics consulted. Right hip x- ray reported no significant change from 2012; no acute fracture/dislocation evident. Denies chest pain, palpitations. Denies lightheadedness dizziness or focal deficits. Afebrile, sputum culture pending. Evaluated by orthopedics with no further intervention recommended at this time. Significant clinical improvement. Cleared by all consults for discharge. Patient is being discharged home in a stable condition with guarded prognosis. EXAM: GENERAL: Sitting up in bed, no acute distress. "Barky", nonproductive cough HEENT: Conjunctivae normal. eyes normal. Oral mucosa moist NECK: No JVD. No thyroid enlargement. No LNs CARDIOVASCULAR: S1, S2 regular. No murmur RESPIRATION: Breath sounds diminished in the bases. Scattered rhonchi , no crackles. No wheezing. ABDOMEN: Soft, nontender . No guarding. no masses palpable. Bowel sounds heard. LEGS: No edema. no swelling PSYCHIATRY: Alert and oriented X3, mood and affect normal. NERVOUS SYSTEM: Cranial N 2-12 grossly normal. Moves all 4 limbs. No focal deficits. Strength and sensation grossly intact.. Skin: no lesions, no rash Microbiology 10/27/18 23:40 Sputum Gram Stain - Final 10/27/18 23:40 Sputum Sputum Culture - Final The impression and plan of care has been dictated as directed. : I performed a history and examination of this patient, discussed the same with the dictator. I agree with the dictator's note ,documented as a scribe. Any additional findings or plans will be noted. Time taken: 35 minutes Patient Condition at Discharge: Stable Plan - Discharge Summary Discharge Rx Participant: No New Discharge Prescriptions: New Cefuroxime Axetil [Ceftin] 500 mg PO BID 3 Days #6 tab predniSONE 10 mg PO DIRECTED #30 tab Pantoprazole [Protonix] 40 mg PO AC-BRKFST #15 tablet. Azithromycin [Zithromax] 500 mg PO Q24H #5 tab Ipratropium-Albuterol Nebulize [Duoneb 0.5 mg-3 mg/3 ml Soln] 3 ml INHALATION QID #120 neb Budesonide-Formot 160-4.5 Mcg [Symbicort 160-4.5 Mcg Inhaler] 2 puff INHALATION RT-BID #1 inh Continue fentaNYL 25MCG/HR PATCH [Duragesic 25MCG/HR] 1 patch TRANSDERM Q72H ALPRAZolam [Xanax] 1 mg PO TID PRN PRN Reason: Anxiety Simvastatin [Zocor] 40 mg PO HS HYDROcodone/APAP 10-325MG [[place] 10-325] 1 tab PO QID Ibuprofen [Motrin] 800 mg PO Q6H PRN PRN Reason: Pain FLUoxetine HCL 60 mg PO DAILY buPROPion XL [Wellbutrin XL] 150 mg PO DAILY FLUoxetine HCL [PROzac] 10 mg PO DAILY Pregabalin [Lyrica] 150 mg PO BID Discharge Medication List ALPRAZolam [Xanax] 1 mg PO TID PRN 03/05/14 [History] HYDROcodone/APAP 10-325MG [[place] 10-325] 1 tab PO QID 03/05/14 [History] Simvastatin [Zocor] 40 mg PO HS 03/05/14 [History] fentaNYL 25MCG/HR PATCH [Duragesic 25MCG/HR] 1 patch TRANSDERM Q72H 03/05/14 [History] Ibuprofen [Motrin] 800 mg PO Q6H PRN 03/08/14 [History] FLUoxetine HCL 60 mg PO DAILY 08/03/16 [History] FLUoxetine HCL [PROzac] 10 mg PO DAILY 10/27/18 [History] Pregabalin [Lyrica] 150 mg PO BID 10/27/18 [History] buPROPion XL [Wellbutrin XL] 150 mg PO DAILY 10/27/18 [History] Azithromycin [Zithromax] 500 mg PO Q24H #5 tab 10/29/18 [Rx] Budesonide-Formot 160-4.5 Mcg [Symbicort 160-4.5 Mcg Inhaler] 2 puff INHALATION RT-BID #1 inh 10/29/18 [Rx] Cefuroxime Axetil [Ceftin] 500 mg PO BID 3 Days #6 tab 10/29/18 [Rx] Ipratropium-Albuterol Nebulize [Duoneb 0.5 mg-3 mg/3 ml Soln] 3 ml INHALATION QID #120 neb 10/29/18 [Rx] Pantoprazole [Protonix] 40 mg PO AC-BRKFST #15 tablet. 10/29/18 [Rx] predniSONE 10 mg PO DIRECTED #30 tab 10/29/18 [Rx] Follow up Appointment(s)/Referral(s): Maurilio Ly MD [Primary Care Provider] - 1 Week Kishan Espinoza MD [Medical Doctor] - As Needed Ambulatory/Diagnostic Orders: Complete Blood Count w/diff [LAB.AMB] Time Frame: 3 Days, Location: None Selected Activity/Diet/Wound Care/Special Instructions: Case management to arrange for nebulizer . O2 sat on room air after ambulation pending: IS Q1h 10 while awake No smoking Final sputum culture results to PCP
== END 2018-10-30 11:17 | disposition home or self-care (01) | DRG 190 ==
LOC: INTOOBSV 13:24 → 4MS4W 13:24 → OBSVTOIN 10-29 15:06
PROVIDERS: ADMIT Family Medicine; ATTEND Family Medicine
DX: J44.0 Chronic obstructive pulmonary disease with (acute) lower respiratory infection (principal); J18.9 Pneumonia, unspecified organism; G90.511 Complex regional pain syndrome I of right upper limb; J44.1 Chronic obstructive pulmonary disease with (acute) exacerbation; I50.811 Acute right heart failure; J20.9 Acute bronchitis, unspecified; G89.4 Chronic pain syndrome; M16.10 Unilateral primary osteoarthritis, unspecified hip; K21.9 Gastro-esophageal reflux disease without esophagitis; E78.5 Hyperlipidemia, unspecified; M54.9 Dorsalgia, unspecified; M25.551 Pain in right hip; E11.9 Type 2 diabetes mellitus without complications; F41.1 Generalized anxiety disorder; F32.9 Major depressive disorder, single episode, unspecified; M50.90 Cervical disc disorder, unspecified, unspecified cervical region; K44.9 Diaphragmatic hernia without obstruction or gangrene; F17.200 Nicotine dependence, unspecified, uncomplicated; Z71.6 Tobacco abuse counseling; Z79.891 Long term (current) use of opiate analgesic; Z79.899 Other long term (current) drug therapy; Z87.01 Personal history of pneumonia (recurrent); Z90.710 Acquired absence of both cervix and uterus; Z87.81 Personal history of (healed) traumatic fracture; Z86.39 Personal history of other endocrine, nutritional and metabolic disease; Z87.19 Personal history of other diseases of the digestive system; Z85.42 Personal history of malignant neoplasm of other parts of uterus; Z98.890 Other specified postprocedural states; Z98.891 History of uterine scar from previous surgery; Z98.51 Tubal ligation status; Z82.49 Family history of ischemic heart disease and other diseases of the circulatory system; Z80.1 Family history of malignant neoplasm of trachea, bronchus and lung; Z82.61 Family history of arthritis; Z86.010 Personal history of colon polyps; Z86.72 Personal history of thrombophlebitis; Z90.49 Acquired absence of other specified parts of digestive tract; Z83.49 Family history of other endocrine, nutritional and metabolic diseases; Z88.1 Allergy status to other antibiotic agents; Z91.018 Allergy to other foods
CPT/HCPCS: 71046; 71275; 73502; 80048; 80053; 85025; 87070; 87205; 93306; 94640

== ENCOUNTER → 2018-12-04 | Outpatient (CLI) | payer MEDICARE ==
--- NOTE | 2018-12-04 13:02 | XR ---
EXAMINATION TYPE: XR cervical spine limited DATE OF EXAM: 12/04/2018 TECHNIQUE: Frontal, lateral, and open mouth view of the cervical spine are obtained. HISTORY: Trauma/R52 Pain dizziness and weakness. Fall injury last month. COMPARISON: MRI December 30, 2017 FINDINGS: The cervical spine is visualized in its entirety from C1 thru the top of T1 level, there i s interval surgery with anterior fusion plate C4-C6 level with metallic intervertebral disc material and resection of C5 vertebra present. Alignment is satisfactory. Mild spurring C3-C4 and C6-C7 level is redemonstrated. No suspicious prevertebral soft tissue swelling. C1-C2 articulation is satisfactor y on the open mouth frontal view. Overlying soft tissues our unremarkable. IMPRESSION: No acute fracture or dislocation is seen in the cervical spine.
--- NOTE | 2018-12-04 13:04 | XR ---
EXAMINATION TYPE: XR skull limited DATE OF EXAM: 12/04/2018 COMPARISON: NONE HISTORY: Fall injury with pain. TECHNIQUE: Skull Limited 2 views. FINDINGS: No acute displaced skull fracture is seen. Overlying soft tissue is unremarkable. There are prominent vessels and sutures noted. IMPRESSION: As above.
--- NOTE | 2018-12-04 13:06 | XR ---
EXAMINATION TYPE: XR mandible limited <4V DATE OF EXAM: 12/04/2018 COMPARISON: NONE HISTORY: Fall injury with pain TECHNIQUE: Mandible Limited less than 4 views. Open and closed mouth coronal as well as oblique proje ction is required. FINDINGS: No acute displaced mandibular fracture is evident. Overlying soft tissue is unremarkable. IMPRESSION: As above.
== END | disposition home or self-care (01) ==
LOC: RADXRMAIN 12:17
PROVIDERS: ATTEND Family Medicine
DX: S19.9XXA Unspecified injury of neck, initial encounter (principal); S09.90XA Unspecified injury of head, initial encounter
CPT/HCPCS: 70100; 70250; 72040

== ENCOUNTER → 2020-09-05 | Outpatient (CLI) | payer MEDICARE ==
--- NOTE | 2020-09-05 14:27 | XR ---
EXAMINATION TYPE: XR foot complete RT, XR ankle complete RT DATE OF EXAM: 09/05/2020 CLINICAL HISTORY: Pain. TECHNIQUE: Frontal, lateral and oblique images of the right ankle and foot are obtained. COMPARISON: Prior right ankle x-ray December 20, 2011. FINDINGS: There is no acute fracture/dislocation evident in the right ankle. Old malunion fracture d istal diaphysis right tibia is redemonstrated. The ankle mortise remain within normal limits. Tiny i nferior calcaneal spur. The overlying soft tissue appears unremarkable. There is no acute fracture or dislocation evident in the right foot. Hallux valgus positioning first metatarsophalangeal joint is present. Some flexion in the toes noted. The joint spaces in the right foot are preserved. Mild to moderate subcutaneous edema edema along dorsal surface distal metatarsal level on lateral view noted. IMPRESSION: As above.
== END | disposition home or self-care (01) ==
LOC: RADXRMAIN 14:02
PROVIDERS: ATTEND Family Medicine
DX: M77.31 Calcaneal spur, right foot (principal); M20.11 Hallux valgus (acquired), right foot; Z87.81 Personal history of (healed) traumatic fracture

== ENCOUNTER → 2021-02-09 | Outpatient (CLI) | payer MEDICARE ==
--- NOTE | 2021-02-09 09:28 | MR ---
EXAMINATION TYPE: MR brain and iac wo/w con DATE OF EXAM: 02/09/2021 COMPARISON: None HISTORY: Vertigo, numbness, visual changes, concussion 08/2020 TECHNIQUE: Multiplanar, multisequence images of the brain and brainstem is performed without and with IV contras t, utilizing 5 mL intravenous Gadavist . High-resolution small [id number] images obtained through the internal auditory canals. FINDINGS: Diffusion weighted images demonstrate no evidence of a recent infarct or other diffusion ab normality. There is no extra-axial fluid collection. Scattered and confluent hyperintensities are p resent on inversion recovery T2-weighted sequences within the pericallosal, periventricular, subcorti armen white matter as well as in the myra. The ventricular system and cisternal spaces are normal in si ze and appearance. The brain volume is age appropriate. The cerebellopontine angles show no mass, internal auditory canals are unremarkable. There is inflamm atory change present within the mastoid air cells on the left. Abnormal increased signal is also note d on T1, T2-weighted images within the petrous apex on the left Midline structures demonstrate normal morphology. The craniocervical junction appears within normal limits. Post contrast images demonstrate no abnormal enhancement. The dural venous sinuses appear pa tent. The visualized sinuses are remarkable for inflammatory changes in the ethmoid air cells, air-fl uid level present in the sphenoid sinus, and the globes are intact. IMPRESSION: Correlate for left-sided mastoiditis, petrous apicitis or cholesterol granuloma, consider temporal bone CT. Sphenoid sinus disease. Nonspecific white matter demyelination, differential inclu desire hypertension, chronic small vessel ischemic changes, hypertension, Lyme disease, multiple scleros is in the appropriate clinical setting.
== END | disposition home or self-care (01) ==
LOC: RADMRIMAIN 07:29
PROVIDERS: ATTEND Otolaryngology
DX: H93.3X9 Disorders of unspecified acoustic nerve (principal); H93.19 Tinnitus, unspecified ear; H91.90 Unspecified hearing loss, unspecified ear; R55 Syncope and collapse; G52.9 Cranial nerve disorder, unspecified; H53.10 Unspecified subjective visual disturbances; J32.3 Chronic sphenoidal sinusitis
CPT/HCPCS: 70553; A9585

== ENCOUNTER → 2021-02-25 | Outpatient (CLI) | payer MEDICARE ==
--- NOTE | 2021-02-25 23:19 | CT ---
EXAMINATION TYPE: CT iac wo/w con DATE OF EXAM: 02/25/2021 COMPARISON: MRI brain and MRI internal auditory canals 02/09/2021 HISTORY: dizziness, frequent falls, abn MRI CT DLP: 300 mGycm Automated exposure control for dose reduction was used. CONTRAST: CT scan of the IACs is performed without and with IV Contrast, patient injected with 100 mL of Isovue 300. Coronal reformatted images were obtained. FINDINGS: Partially visualized intracranial structures appear unremarkable. No evidence of cerebellopontine ang le mass. Skull base appears normal. Bilateral internal auditory canals are symmetric bilaterally. External auditory canals are patent bilaterally. Middle ear cavities are clear bilaterally. Trace gary unt of fluid within the left mastoid air cell. Right mastoid air cell appears clear. No abnormality of the middle ear ossicles. The round and oval window are normal. No abnormality of th e bony labyrinths. Cochlear and vestibular aqueducts are well visualized. The facial nerve canal is n ormal bilaterally. Small air-fluid level within the left sphenoid sinus; otherwise, the additional visualized paranasal sinuses are clear. No areas of abnormal pathologic enhancement. IMPRESSION: 1. Trace amount of nonspecific fluid within the left mastoid air cell. 2. Small air-fluid level within the left sphenoid sinus. Correlate for acute sinus disease.
== END | disposition home or self-care (01) ==
LOC: RADCTMAIN 11:09
PROVIDERS: ATTEND Otolaryngology
DX: R42 Dizziness and giddiness (principal); H93.3X9 Disorders of unspecified acoustic nerve
CPT/HCPCS: 70482; Q9967

== ENCOUNTER → 2021-05-04 | Outpatient (CLI) | payer MEDICARE ==
--- NOTE | 2021-05-04 13:39 | US ---
EXAMINATION TYPE: US carotid duplex BILAT DATE OF EXAM: 05/04/2021 COMPARISON: NONE CLINICAL HISTORY: 61-year-old female R41.3 MEMORY LOSS, H53.9 VISION DISTURBANCE. TECHNIQUE: Carotid duplex ultrasound examination. Indirect Doppler criteria was utilized. FINDINGS: EXAM MEASUREMENTS: RIGHT: Peak Systolic Velocity (PSV) cm/sec ----- Right CCA: 98.2 ----- Right ICA: 121.4 ----- Right ECA: 102.7 ICA/CCA ratio: 1.2 RIGHT: End Diastole cm/sec ----- Right CCA: 34.3 ----- Right ICA: 42.6 ----- Right ECA: 17.1 LEFT: Peak Systolic Velocity (PSV) cm/sec ----- Left CCA: 100.4 ----- Left ICA: 99.0 ----- Left ECA: 113.9 ICA/CCA ratio: 1.0 LEFT: End Diastole cm/sec ----- Left CCA: 34.9 ----- Left ICA: 40.9 ----- Left ECA: 27.5 VERTEBRALS (direction of flow): Right Vertebral: Antegrade Left Vertebral: Antegrade Rhythm: Normal Storage Battery Tester notes: No elevated velocities Only mild atherosclerotic calcifications are present at the bifurcations. IMPRESSION: No hemodynamically significant internal carotid artery stenosis on either side. Criteria for Assigning % of Stenosis / Diameter reduction (Estimation based on the indirect measurements of the internal carotid artery velocities (ICA PSV). 1. Normal (no stenosis)=ICA PSV < 125 cm/s: ratio < 2.0: ICA EDV<40 cm/s. 2. Less than 50% stenosis=ICA PSV < 125 cm/s: ratio < 2.0: ICA EDV<40 cm/s. 3. 50 to 69% stenosis=ICA PSV of 125 to 230 cm/s: ration 2.0 ? 4.0: ICA EDV 40-100 cm/s. 4. Greater than 70% stenosis to near occlusion= ICA PSV > 230 cm/s: ratio > 4.0: ICA EDV > 100 cm/s. 5. Near occlusion= ICA PSV velocities may be low or undetectable: variable ratio and ICA EDV. 6. Total occlusion=unable to detect flow.
== END | disposition home or self-care (01) ==
LOC: RADUSWWP 12:18
PROVIDERS: ATTEND Psychiatry & Neurology Neurology
DX: R41.3 Other amnesia (principal); H53.9 Unspecified visual disturbance
CPT/HCPCS: 93880

== ENCOUNTER → 2021-06-03 | Outpatient (CLI) | payer MEDICARE ==
[2021-06-03 17:02] LABS: Anion Gap 13.1 mmol/L (10.00-18.00); Blood Urea Nitrogen 17.8 mg/dL (9.0-27.0); Carbon Dioxide 22.3 mmol/L (20.0-27.5); Non-African American GFR(CKD) 45.7 (60.0-200.0); Potassium 3.8 mmol/L (3.5-5.5)
[2021-06-05 14:38] LABS: APTT 44 Sec(s) (<43); APTT 1:1 Mix 45 Sec(s) (<43); Dilute Russell Viper Venom 41 Sec(s) (<44); Hexagonal Phase Neutralization Positive (Negative)
== END | disposition home or self-care (01) ==
LOC: LABWHC1 11:52
PROVIDERS: ATTEND Family Medicine
DX: I10 Essential (primary) hypertension (principal); B89 Unspecified parasitic disease; Z79.899 Other long term (current) drug therapy
CPT/HCPCS: 36415; 80051; 82565; 84520; 85598; 85613; 85730; 85732; 86038; 86225

== ENCOUNTER → 2023-03-11 | Outpatient (CLI) | payer MEDICARE ==
--- NOTE | 2023-03-11 13:49 | CT ---
EXAMINATION TYPE: CT chest abdomen wo con CT DLP: 250 mGycm, Automated exposure control for dose reduction was used. DATE OF EXAM: 03/11/2023 1:36 PM COMPARISON: CTA chest 10/28/2018 CLINICAL INDICATION:Female, 62 years old with history of R07.9 CHEST PAIN R74.01 ELEVATED LFT'S; PHH, chest pain, elevated LFTs Technique: Multiple axial images of the chest and abdomen were obtained without the administration IV or oral contrast. Two-dimensional coronal and sagittal reconstructions were obtained. Findings: CHEST: Limited examination due to lack of intravenous and oral contrast. LUNGS/ PLEURA: No pleural effusion, pneumothorax, focal consolidation. Mild centrilobular emphysemato us changes. Right lower lobe 6 mm pulmonary nodule (series 4, image 52). New from prior examination. AIRWAY: Patent and unremarkable.. HEART: Size within normal limits. No pericardial effusion. Small coronary arterial calcifications. MEDIASTINUM: No gross evidence of adenopathy. VASCULATURE: No aortic aneurysm. Atherosclerotic calcification of the aorta and its branches. MUSCULOSKELETAL: No acute osseous abnormalities. Partial visualization of cervical fusion hardware. SOFT TISSUES/LYMPH NODES: Unremarkable. LOWER NECK: No significant findings. ABDOMEN: ABDOMEN LIVER: Stable linear scarring within the right hepatic lobe dating back to 2019 and considered benign . GALLBLADDER AND BILE DUCTS: The gallbladder is surgically absent. PANCREAS: Unremarkable. SPLEEN: Unremarkable. ADRENAL GLANDS: Unremarkable. KIDNEYS AND URETERS: No evidence of hydronephrosis or renal calculus. The ureters are unremarkable. STOMACH AND BOWEL: Stomach and duodenum are unremarkable. No evidence of bowel obstruction. PERITONEUM: No evidence of pneumoperitoneum or free fluid. VASCULATURE: Mild atherosclerotic calcifications are present throughout the abdominal aorta and its b ranches. No abdominal aortic aneurysm. MUSCULOSKELETAL: No acute osseous abnormalities LYMPH NODES: No gross evidence for lymphadenopathy. SOFT TISSUE/ABDOMINAL WALL: Unremarkable IMPRESSION: 1. No acute process within the chest or abdomen. 2. New right lower lobe 6 mm pulmonary nodule. Follow-up CT chest in 6-12 months is recommended.
== END | disposition home or self-care (01) ==
LOC: RADCTMAIN 13:17
PROVIDERS: ATTEND Family Medicine
DX: R91.1 Solitary pulmonary nodule (principal); R07.9 Chest pain, unspecified; R74.01 Elevation of levels of liver transaminase levels
CPT/HCPCS: 71250; 74150

== ENCOUNTER → 2024-03-19 | Outpatient (CLI) | payer MEDICARE ==
--- NOTE | 2024-03-19 13:21 | CT ---
EXAMINATION TYPE: CT chest wo con CT DLP: 434 mGycm, Automated exposure control for dose reduction was used. DATE OF EXAM: 03/19/2024 1:14 PM COMPARISON: CT chest abdomen 03/11/2023, CTA chest 10/28/2018 CLINICAL INDICATION:Female, 63 years old with history of Z12.2 ENCNTR SCREEN FOR MAL F17.210 NICOTINE DEPEN; PHH, pulmonary nodule TECHNIQUE: Multiple axial images were obtained through the chest without IV contrast. Lack of IV or o ral contrast limits evaluation of solid and hollow organ viscera. . Coronal and sagittal reformats re viewed. FINDINGS: LUNGS/ PLEURA: No pleural effusion, pneumothorax, focal consolidation. Linear scarring within the lef t lower lobe. Mild centrilobular emphysematous changes. Resolution of previously demonstrated right l ower lobe pulmonary nodule. No new suspicious pulmonary nodule or mass. AIRWAY: Patent and unremarkable.. HEART: Size within normal limits.No pericardial effusion. Small coronary arterial calcifications. MEDIASTINUM: No gross evidence of adenopathy. VASCULATURE: No aortic aneurysm. Atherosclerotic calcification of the aorta and its branches. MUSCULOSKELETAL: No acute osseous abnormalities. Partial visualization of cervical fusion hardware. SOFT TISSUES/LYMPH NODES: Unremarkable. LOWER NECK: No significant findings. UPPER ABDOMEN: Gallbladder is surgically absent. Linear scarlike region within the inferior right hep atic lobe unchanged. IMPRESSION: 1. Resolution of previously demonstrated right lower lobe pulmonary nodule. No new suspicious pulmon glison nodule or mass. 2. Mild COPD changes. [facility], , 03/19/2024 1:19 PM
== END | disposition home or self-care (01) ==
LOC: RADCTMAIN 12:45
PROVIDERS: ATTEND Family Medicine
DX: Z12.2 Encounter for screening for malignant neoplasm of respiratory organs (principal); J44.9 Chronic obstructive pulmonary disease, unspecified; F17.210 Nicotine dependence, cigarettes, uncomplicated; R91.1 Solitary pulmonary nodule; I70.0 Atherosclerosis of aorta
CPT/HCPCS: 71250

== ENCOUNTER → 2024-06-16 | Outpatient (CLI) | payer MEDICARE ==
--- NOTE | 2024-06-16 12:53 | XR ---
EXAMINATION TYPE: XR chest 2V DATE OF EXAM: 06/16/2024 12:42 PM COMPARISON: Chest radiographs from 10/27/2018. CLINICAL INDICATION: Female, 64 years old with history of J44.9 COPD; TECHNIQUE: XR chest 2V Frontal and lateral views of the chest. FINDINGS: Lungs/Pleura: Prominent interstitial lung markings are seen scattered throughout the lungs with loan ening of the diaphragm and increased lucency of the lung apices. No evidence of focal consolidation, pneumothorax or pleural effusion. Pulmonary vascularity: Unremarkable. Heart/mediastinum: Cardiomediastinal silhouette is unremarkable. Musculoskeletal: No acute osseous pathology. IMPRESSION: 1. No acute cardiopulmonary disease process. 2. COPD changes. [facility], , 06/16/2024 12:50 PM
[2024-06-16 14:44] LABS: Influenza A Not Detected (Not Detectd); Influenza B Not Detected (Not Detectd); RSV Not Detected (Not Detectd)
== END | disposition home or self-care (01) ==
LOC: RADXRMAIN 12:28
PROVIDERS: ATTEND Family Medicine
DX: J44.9 Chronic obstructive pulmonary disease, unspecified (principal); I25.10 Atherosclerotic heart disease of native coronary artery without angina pectoris; B89 Unspecified parasitic disease; N39.0 Urinary tract infection, site not specified; Z79.899 Other long term (current) drug therapy
CPT/HCPCS: 71046; 87086; 87636